=== PATIENT | female | born 1940 ===

== ENCOUNTER 2023-12-04 12:53 | Outpatient (AMB) | payer MEDICARE, BC, SELFPAY ==
--- NOTE | 2023-12-04 13:03 | MHC.OFFWIV ---
Intake Vital Signs 12/04/23 13:04 Weight 65.317 kg BP 110/60 Blood Pressure Location Lt brachial Position Sitting Pulse 98 Pulse Source Pulse Oximeter Temp 98.3 F Temp Source Temporal Artery Scan Pulse Oximetry (%) 96 Oxygen Delivery Method Room Air Intake Visit Reasons: EP not eating abdomen pain fever 101.2 Intake Note: ptis here today for not eating abdomen pain fever started thursday Patient Tobacco Use Status: Never used Tobacco Allergies No Known Allergies Allergy (Verified 12/04/23 13:04) Do you need a note to return to daycare/school/sports/work: No HPI HPI Comments History of Present Illness Details 1323 83 year old female presents w/ concerns of fevers ( Tmax 101.0F at home today), chills lower abd discomfort, fatigue, malaise, weakness, decreased appetite since Thursday not improving. Patient has not been acting her normal self. Here with daughter who is 1 of her caretakers. Patient has history of urinary tract infections have presented similarly. Patient reports lower abdominal discomfort primarily with palpation. Denies nausea, vomiting, blood per rectum, diarrhea, headache, vision changes, chest pain and shortness of breath. Physical exam suprapubic abdominal discomfort. Concerns for UTI versus cystitis versus urosepsis. Other differentials include viral illness, diverticulitis, metabolic derangements, dehydration. Plan at this time will have patient go to [facility]'s Emergency Department. Spoke to Triage nurse Sean. for expect [facility] Social History Patient Tobacco Use Status: Never used Tobacco Review of Systems Const All systems reviewed & are unremarkable except as noted in HPI and below Physical Exam Vital Signs: vss Appearance: Alert.? Oriented X3.? No acute distress.? Patient does however appear sick. Week. Head: Normocephalic, atraumatic, no step-offs or deformities Eyes: Pupils equal, round and reactive to light.? Neck: Normal inspection.? Neck supple.? CVS: Normal heart rate and rhythm.? Pulses normal.? Respiratory: No respiratory distress.? Breath sounds normal.? Abdomen: Soft and lower abdominal pain with palpation particularly in suprapubic region.? Skin: Skin warm and dry.? Normal skin color.? Normal skin turgor.? Extremities: No lower extremity edema.? No calf ttp. Global weakness Neuro: Oriented X 3.? No motor deficit.? No sensory deficit. CN 2-12 intact Assessment & Plan Assessment & Plan (1) Abdominal pain: Code(s): R10.9 - Unspecified abdominal pain (2) Weakness: Code(s): R53.1 - Weakness (3) Fever: Code(s): R50.9 - Fever, unspecified Plan Patient will go to [facility] ED Coding Level of Care Code Est Pt Level 3 (55145) Diagnoses Abdominal pain R10.9 Weakness R53.1 Fever R50.9
[2023-12-04 13:04] VITALS: BP 110/60; PULSE 98; TEMP 36.8; O2SAT 96
== END 2023-12-04 13:53 | disposition home or self-care (01) ==
PROVIDERS: PCP Internal Medicine; Visit Provider Physician Assistant
DX: R10.9 Unspecified abdominal pain (principal); R53.1 Weakness; R50.9 Fever, unspecified
CPT/HCPCS: 99213

== ENCOUNTER 2023-12-04 13:46 | Inpatient (IN) | payer MEDICARE, BC, SELFPAY ==
[2023-12-04] VITALS (10 sets, daily range): BP systolic 82–165; BP diastolic 47–64; PULSE 73–101; RESP 14–20; TEMP 36.7–37.5; O2SAT 94–97; BMI 28.3
--- NOTE | ~2023-12-04 | CT_ITS ---
EXAMINATION: CT abdomen pelvis w IV con CLINICAL INFORMATION: Reason for Exam LUQ and LLQ tenderness, fever COMPARISON: No prior CT available for comparison. TECHNIQUE: Multidetector volumetric imaging was performed from the superior aspect of the liver through the pubic symphysis 85 mL Omnipaque 350 injected Sagittal and coronal reformatted images were obtained on the technologist's workstation. This CT examination was performed using dose optimization techniques as appropriate, variously including the following: *Automated exposure control *Adjustment of mA and/or kV according to patient size (this includes techniques or standardized protocols for targeted exams where dose is matched to indication/reason for exam; i.e. extremities or head) *Use of iterative reconstruction technique DLP: 401 mGy-cm FINDINGS: LOWER THORAX: Included lung bases are clear. HEPATOBILIARY: Tiny hypodensity in the right lobe of the liver likely a cyst 8 mm image 22 series of 3, liver otherwise normal homogeneous. GALLBLADDER: Gallbladder unremarkable. SPLEEN: Spleen is normal in size. PANCREAS: No focal mass or ductal dilatation. STOMACH AND GASTROINTESTINAL TRACT: Stomach is grossly unremarkable. There is diverticulosis of the area sigmoid colon without CT evidence of acute diverticulitis. Excess amount of stool in the colon suggests constipation. Appendix not visualized probably obscured by crowding of bowel loops and paucity of intraperitoneal fat.. ADRENALS: No adrenal nodules. KIDNEYS/URETERS: There is left renal hydronephrosis, transition at the ureteral pelvic junction, no stone can be identified, uncertain etiology could be by noncalcified stone, small lesion, crossing vessel among others, there is perinephric fat stranding, hypodense area in the anterior cortex of the left kidney measure about 2.2 cm concerning for possible infection nephric abscess/nephroma. There are multiple left renal cysts the largest protruding from the upper pole measure 5.9 cm. URINARY BLADDER: Partially decompressed. PELVIC VISCERA: Evaluation of the pelvis is limited due to intense beam hardening artifact from the left hip. PERITONEUM: No free air or fluid. LYMPH NODES: No lymphadenopathy. VASCULAR:Heavy vascular calcification of the aorta without evidence of aneurysm. 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 Left hip prosthesis CT/CT abdomen pelvis w IV con IMPRESSION: 1. There is left renal hydronephrosis, transition proximally at the UPJ junction, no stone can be identified, uncertain etiology could be by noncalcified stone, small lesion, crossing vessel among others, there is perinephric fat stranding, hypodense area in the anterior cortex of the left kidney measure about 2.2 cm concerning for possible infection developing renal abscess. Consider correlation with with short-term follow-up CT urogram. 2. Diverticulosis without evidence of acute diverticulitis. 3. Excess amount of stool in the colon suggests constipation. 4. 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
--- NOTE | ~2023-12-04 | XR_ITS ---
EXAMINATION: XR CHEST CLINICAL INFORMATION: Cough x1 week COMPARISON: None available. TECHNIQUE: 2 views of the chest were obtained. FINDINGS: Lungs are well-expanded and clear. Heart size and pulmonary vascularity is normal. There is mild scoliosis of dorsal spine. XR/XR chest 2V IMPRESSION: Unremarkable chest.
--- NOTE | ~2023-12-04 | FL_ITS ---
EXAMINATION: XR FLUOROSCOPY WITH IMAGES CLINICAL INFORMATION: Cystoscopy with stent placement. COMPARISON: CT abdomen and pelvis dated 12/04/2023. TECHNIQUE: Fluoroscopy Supervised By: Dr. Julio Cesar Vines. Fluoroscopy Time: 20.1 seconds. Cumulative Dose: 5.13 mGy. Images: 2. FINDINGS: The submitted images show injection of contrast opacifying the left ureter. There is mild tapering at the ureteropelvic junction. Small gas bubbles are seen in the mid left ureter. A double pigtail left ureteric stent is placed. FL/FL guidance in OR IMPRESSION: Intraoperative fluoroscopic guidance is provided during cystoscopy and left ureteric stent placement. Please see the patient's Operative Report for full procedural details.
--- NOTE | 2023-12-04 14:09 | ED.GENADULT ---
HPI - General Adult General Chief complaint: General Medical Stated complaint: Low Blood Pressure Tachy Sent by PCP Time Seen by Provider: 12/04/23 14:09 Source: patient and family (daughter) Mode of arrival: ambulatory Limitations: no limitations History of Present Illness HPI narrative: Patient is an 83-year-old female presenting to the emergency department with daughter who reports that patient has felt unwell since Thursday. States symptoms began as generalized fatigue and decreased appetite. Family then felt patient's abdomen was firm and began giving her OTC laxatives. Daughter states that on patient had a bowel movement, appeared less fatigued, and was able to eat. She states that today patient appeared fatigued again, decreased appetite, and patient's son who is a physician was concerned for UTI or other cause of patient's symptoms. Patient reports small bowel movement this morning but is unable to report whether it was firm, soft, etc. Daughter reports some memory impairment. Daughter checked temp in ear today and had 101.3 in one ear, 101.7 in the other. Daughter took patient to urgent care this morning and was told patient was tachycardic and hypotensive, referred to the ED. Patient and daughter deny cough or dyspnea. Patient denies chest pain, palpitations, lower extremity edema, or calf pain/swelling. MD complaint: fever, fatigue Onset (ago): day(s) Location: abdomen Radiation: non-radiation Severity: mild Quality: dull Exacerbating factors: eating Associated symptoms: fever/chills and weakness Treatments prior to arrival: other Related Data Home Medications Medication Instructions Recorded Confirmed ascorbic acid (vitamin C) 500 mg 500 mg PO DAILY 12/04/23 12/04/23 tablet (Vitamin C) aspirin 81 mg chewable tablet 81 mg PO DAILY 12/04/23 12/04/23 atorvastatin 80 mg tablet 80 mg PO DAILY 12/04/23 12/04/23 calcium 600 mg capsule 600 mg PO DAILY 12/04/23 12/04/23 doxazosin 4 mg tablet 4 mg PO DAILY 12/04/23 12/04/23 ezetimibe 10 mg tablet 10 mg PO DAILY 12/04/23 12/04/23 hydrochlorothiazide 12.5 mg tablet 12.5 mg PO DAILY 12/04/23 12/04/23 irbesartan 300 mg tablet 300 mg PO DAILY 12/04/23 12/04/23 metoprolol tartrate 25 mg tablet 25 mg PO BID 12/04/23 12/04/23 multivitamin 1 tab PO DAILY 12/04/23 12/04/23 Previous Rx's Medication Instructions Recorded cefuroxime axetil 250 mg tablet 250 mg PO BID 7 days #14 tabs 12/04/23 Allergies Allergy/AdvReac Type Severity Reaction Status Date / Time No Known Allergies Allergy Verified 12/04/23 13:04 Review of Systems Review of Systems: As per HPI. Yes all other systems are reviewed and are negative [facility] Past Medical History Medical History Constipation History of recurrent UTIs Left leg DVT Rupture of left gastrocnemius muscle Leg edema, left COPD (chronic obstructive pulmonary disease) Hyperlipidemia Essential hypertension Surgical History History of left hip replacement History of operative procedure on lumbosacral spinal structure S/P IVC filter History of cataract surgery H/O: hysterectomy Social History Social History Household Members: Spouse Housing: Apartment Housing Other:: indep living Do you presently have visiting nurse or other home services: No Alcohol intake: never Patient Tobacco Use Status: Former Tobacco user Advance Directives Date on File: 12/05/23 service: No Physical Exam ED Vital Signs: Vital Signs - 24 hr 12/04/23 14:03 12/04/23 14:14 12/04/23 14:14 Temperature 98.5 F Pulse Rate 84 Respiratory Rate 18 Blood Pressure 82/47 L 142/59 H 103/49 L Pulse Oximetry 94 Oxygen Delivery Method Room Air 12/04/23 15:46 12/04/23 16:05 12/04/23 17:20 Temperature 98.3 F 98.1 F Pulse Rate 74 73 84 Respiratory Rate 14 16 16 Blood Pressure 139/62 127/62 157/64 H Pulse Oximetry 95 96 97 Oxygen Delivery Method Room Air Room Air Room Air 12/04/23 18:29 12/04/23 20:10 Temperature 98.6 F Pulse Rate 101 H 101 H Respiratory Rate 20 20 Blood Pressure 165/52 H Pulse Oximetry 96 Oxygen Delivery Method Room Air BMI result Body Mass Index 28.3 Vital signs have been reviewed and appear to be correct. Blood pressure normal. Heart rate normal. Respiratory rate normal. Temperature normal. Oxygen saturation normal. Course Reevaluation(s) Reevaluation #1: Patient was signed out to me pending UA and CT abdomen/pelvis. Patient's UA did show infection. IV ceftriaxone ordered. Patient's clinical presentation is NOT consistent with sepsis (@1916). Patient's CT abdomen/pelvis showed evidence of a possible left renal abscess in the left anterior cortex. Consulted with the urologist who recommended continued IV antibiotics and admission to the hospital. I spoke with the hospitalist team who agreed to admission. Patient's son has requested to be informed of all updates and can be called at any time for more information, if needed. Patient's son's information as follows: Odin Rodriguez MD. [phone]. Time: 21:16 Medications Administered Generic Name Dose Route Start Last Admin Trade Name Freq PRN Reason Stop Dose Admin Acetaminophen 975 mg 12/04/23 21:46 12/05/23 17:04 Acetaminophen 325 Mg Tablet PO 975 mg Q6H PRN Administration Headache Albuterol/Ipratropium 3 ml 12/05/23 17:00 12/06/23 19:26 Albuterol/Iprat 2.5/0.5mg 3 Ml Ampul.Neb INHALE 3 ml RQ4H WHILE AWAKE RAUL Administration Ascorbic Acid 500 mg 12/05/23 09:00 12/06/23 08:30 Ascorbic Acid 500 Mg Tablet PO 500 mg DAILY RAUL Administration Aspirin 81 mg 12/05/23 09:00 12/06/23 08:30 Aspirin 81 Mg Tab.Chew PO 81 mg DAILY RAUL Administration Atorvastatin Calcium 80 mg 12/05/23 09:00 12/06/23 08:30 Atorvastatin Calcium 80 Mg Tablet PO 80 mg DAILY RAUL Administration Bisacodyl 10 mg 12/05/23 09:00 12/06/23 09:57 Bisacodyl 5 Mg Tablet. PO Not Given DAILY RAUL Calcium Carbonate 500 mg 12/05/23 09:00 12/06/23 08:30 Calcium Carbonate 500 Mg Tablet PO 500 mg DAILY RAUL Administration Doxazosin Mesylate 4 mg 12/05/23 09:00 12/06/23 08:30 Doxazosin Mesylate 2 Mg Tablet PO 4 mg DAILY RAUL Administration Protocol Ezetimibe 10 mg 12/05/23 09:00 12/06/23 08:30 Ezetimibe 10 Mg Tablet PO 10 mg DAILY RAUL Administration Hydrochlorothiazide 12.5 mg 12/05/23 09:40 12/06/23 08:30 Hydrochlorothiazide 12.5 Mg Tablet PO 12.5 mg DAILY RAUL Administration Protocol Ceftriaxone Sodium 1 gm/ 50 mls @ 100 mls/hr 12/05/23 17:00 12/06/23 17:53 Sodium Chloride IV Infused Q24H RAUL Infusion Metoprolol Tartrate 25 mg 12/04/23 21:55 12/06/23 20:18 Metoprolol Tartrate 25 Mg Tablet PO 25 mg BID RAUL Administration Protocol Multivitamins/Vitamin C 1 tab 12/05/23 09:00 12/06/23 08:30 Multivitamin Tablet PO 1 tab DAILY RAUL Administration Sodium Chloride 3 ml 12/05/23 00:00 12/06/23 23:38 0.9 % Sodium Chloride Flush 3 Ml Syringe IVFLUSH 3 ml QSHIFT RAUL Administration Discontinued Medications Generic Name Dose Route Start Last Admin Trade Name Freq PRN Reason Stop Dose Admin Albuterol/Ipratropium 3 ml 12/04/23 22:04 12/05/23 16:10 Albuterol/Iprat 2.5/0.5mg 3 Ml Ampul.Neb INHALE 3 ml RQ4H WHILE AWAKE PRN Administration Shortness of Breath/Wheezing Albuterol Sulfate 2.5 mg/ 0 mg 12/04/23 18:22 12/04/23 18:29 Albuterol/Ipratropium 3 ml INHALE 12/04/23 18:23 1 dose ONCE ONE Administration Sodium Chloride 1,000 mls @ 999 mls/hr 12/04/23 15:00 12/04/23 18:02 Ns IV 12/04/23 16:00 Infused .Q1H1M RAUL Infusion Ceftriaxone Sodium 1 gm/ 50 mls @ 100 mls/hr 12/04/23 17:11 12/04/23 18:02 Sodium Chloride IV 12/04/23 17:40 Infused ONCE ONE Infusion Sodium Chloride 1,000 mls @ 999 mls/hr 12/04/23 17:30 12/04/23 18:16 Ns IV 12/04/23 18:30 Not Given .Q1H1M RAUL Sodium Chloride 1,000 mls @ 80 mls/hr 12/04/23 22:15 12/06/23 17:55 Ns IVCONT Infused .[id number] RAUL Infusion Iohexol 85 ml 12/04/23 18:02 12/04/23 18:02 Iohexol 350 Mg/Ml 100 Ml Infus..Btl IV 12/04/23 18:03 85 ml ONCE ONE Administration Ketorolac Tromethamine 15 mg 12/04/23 17:50 12/04/23 18:15 Ketorolac Tromethamine 15 Mg/Ml Vial IVPUSH 12/04/23 17:51 15 mg ONCE ONE Administration Valsartan 160 mg 12/05/23 09:00 12/05/23 07:31 Valsartan 160 Mg Tablet PO 160 mg DAILY RAUL Administration Medical Decision Making Medical Decision Making [facility] Narrative: Patient is an 83-year-old female presenting to the emergency department with daughter who reports that patient has felt unwell since Thursday. States symptoms began as generalized fatigue and decreased appetite. On exam patient is awake, A+Ox3, VS WNL, afebrile, normal neurological exam without focal deficits, physical exam findings as above. Given reported symptoms and physical exam findings, initial differential includes viral illness, Covid, flu, UTI/pyelonephritis, constipation, diverticulitis. Less likely ACS but will obtain EKG and troponin. Will give IV fluids as daughter reports decreased PO intake over the past week. Labs notable for as, mild anemia consistent with baseline, elevated troponin, will repeat, elevated BUN will order IV fluids, mildly elevated liver enzymes, normal bili. Patient signed out to MALLORY Arredondo pending UA and CT results., Differential Diagnosis Differential Diagnoses: The differential diagnosis associated with the presentation includes As per MDM. Admission/Observation Consideration of admission/observation: Escalation of care including admission/observation considered Lab Data [facility] Lab Attestation statement: I reviewed the patient's lab results. As per MDM. 12/07/23 05:26 12/07/23 05:26 Labs: Lab Results 12/04/23 12/04/23 12/04/23 Range/Units 14:27 14:32 16:20 WBC 9.7 (4.8-10.8) X10*3/uL RBC 3.47 L (4.20-5.50) X10*6/uL Hgb 11.0 L (12.0-16.0) g/dl Hct 33.4 L (37.0-47.0) % MCV 96.3 (80.0-98.0) fL MCH 31.7 (27.0-33.0) pg MCHC 32.9 (31.0-35.0) g/dl RDW 14.6 (11.0-16.0) % Plt Count 225 (160-400) X10*3/uL MPV 10.2 (9.4-12.3) fL Immature Gran % (Auto) 0.4 (0.0-0.4) % Neut % (Auto) 86.1 H (45-73) % Lymph % (Auto) 5.7 L (20-40) % [place] % (Auto) 7.6 (2-11) % Eos % (Auto) 0.1 (0-4) % Baso % (Auto) 0.1 (0-2) % Lymph # (Auto) 0.6 L (1.2-4.9) X10*3/uL [place] # (Auto) 0.7 (0.1-1.2) X10*3/uL Eos # (Auto) 0.0 (0.0-0.4) X10*3/uL Baso # (Auto) 0.0 (0.0-0.2) X10*3/uL Abs Immat Gran (auto) 0.04 H (0.00-0.03) X10*3/uL Absolute Neuts (auto) 8.3 (2.0-8.3) x10*3/uL Absolute Nucleated RBC 0.000 (0.0-0.012) X10*3/uL Nucleated RBC % (auto) 0.0 (0.0-0.2) /100WBC PT 11.8 (11.1-13.3) SEC INR 1.0 (0.9-1.1) Sodium Cancelled Potassium Cancelled Chloride Cancelled Carbon Dioxide Cancelled Anion Gap Cancelled BUN Cancelled Creatinine Cancelled Estim Creat Clear Calc Cancelled Estimated GFR Cancelled Random Glucose Cancelled Calcium Cancelled Total Bilirubin Cancelled AST Cancelled ALT Cancelled Alkaline Phosphatase Cancelled Troponin I High Sens 47.8 H (<3.5-17.0) ng/L B-Natriuretic Peptide (<100) pg/mL Total Protein Cancelled Albumin Cancelled Urine Color Yellow Urine Appearance Turbid Urine pH 6.0 (5.0-9.0) Ur Specific Varina 1.015 (1.005-1.025) Urine Protein 100 (2+) H (Neg-Trace) mg/dL Urine Glucose (UA) Negative (Negative) mg/dL Urine Ketones Negative (Negative) mg/dL Urine Blood Moderate (2+) H (Negative) Urine Nitrite Negative (Negative) Ur Leukocyte Esterase Large (3+) H (Negative) Urine RBC >20 H (0-2) /HPF Urine WBC >50 H (0-5) /HPF Ur Squamous Epith Cells 3-5 (0-2) /HPF Urine Bacteria 4+ (None Seen) Hyaline Casts 6-10 (0-2) /LPF COVID-19 (DAISY) Negative (Negative) COVID-19 Clin Com See Note Influenza Type A (KISHORE) Negative (Negative) Influenza Type B (KISHORE) Negative (Negative) Influenza A & B Note See Note 12/04/23 12/04/23 12/04/23 Range/Units 16:59 17:33 18:28 WBC (4.8-10.8) X10*3/uL RBC (4.20-5.50) X10*6/uL Hgb (12.0-16.0) g/dl Hct (37.0-47.0) % MCV (80.0-98.0) fL MCH (27.0-33.0) pg MCHC (31.0-35.0) g/dl RDW (11.0-16.0) % Plt Count (160-400) X10*3/uL MPV (9.4-12.3) fL Immature Gran % (Auto) (0.0-0.4) % Neut % (Auto) (45-73) % Lymph % (Auto) (20-40) % [place]ot % (Auto) (2-11) % Eos % (Auto) (0-4) % Baso % (Auto) (0-2) % Lymph # (Auto) (1.2-4.9) X10*3/uL [place] # (Auto) (0.1-1.2) X10*3/uL Eos # (Auto) (0.0-0.4) X10*3/uL Baso # (Auto) (0.0-0.2) X10*3/uL Abs Immat Gran (auto) (0.00-0.03) X10*3/uL Absolute Neuts (auto) (2.0-8.3) x10*3/uL Absolute Nucleated RBC (0.0-0.012) X10*3/uL Nucleated RBC % (auto) (0.0-0.2) /100WBC PT (11.1-13.3) SEC INR (0.9-1.1) Sodium 138 Potassium 3.4 Chloride 99 Carbon Dioxide 26 Anion Gap 16 BUN 51 H Creatinine 1.38 Estim Creat Clear Calc 24.1 Estimated GFR 36 Random Glucose 106 Calcium 8.5 Total Bilirubin 0.8 AST 49 H ALT 31 Alkaline Phosphatase 92 Troponin I High Sens 30.9 H (<3.5-17.0) ng/L B-Natriuretic Peptide 80 (<100) pg/mL Total Protein 6.3 L Albumin 3.1 L Urine Color Urine Appearance Urine pH (5.0-9.0) Ur Specific Varina (1.005-1.025) Urine Protein (Neg-Trace) mg/dL Urine Glucose (UA) (Negative) mg/dL Urine Ketones (Negative) mg/dL Urine Blood (Negative) Urine Nitrite (Negative) Ur Leukocyte Esterase (Negative) Urine RBC (0-2) /HPF Urine WBC (0-5) /HPF Ur Squamous Epith Cells (0-2) /HPF Urine Bacteria (None Seen) Hyaline Casts (0-2) /LPF COVID-19 (DAISY) (Negative) COVID-19 Clin Com Influenza Type A (KISHORE) (Negative) Influenza Type B (KISHORE) (Negative) Influenza A & B Note Independent Interpretation I performed an independent interpretation of an: EKG (normal sinus rhythm with LBBB, rate 76 BPM, normal NM interval ) Independent Historian Clinical information obtained from an independent historian. History obtained from or confirmed by: Other (daughter) External Record Review External record reviewed: Inpatient record, Office record and Outpatient record Discharge Plan Discharge Clinical Impression: Kidney abscess Urinary tract infection Qualifiers: Urinary tract infection type: acute cystitis Hematuria presence: without hematuria Qualified Code(s): N30.00 - Acute cystitis without hematuria Patient Disposition: Admitted As Inpatient Interventions: Admission Worksheet (ED) Last Done: 12/05/23 10:52 Discharge Date/Time: 12/05/23 11:15
--- NOTE | 2023-12-04 14:17 | ECG_ITS ---
Test Reason : HYPOTENSIVE Blood Pressure : / mmHG Vent. Rate : 076 BPM Atrial Rate : 076 BPM P-R Int : 124 ms QRS Dur : 150 ms QT Int : 426 ms P-R-T Axes : 043 009 155 degrees QTc Int : 479 ms Normal sinus rhythm Left bundle branch block Abnormal ECG No previous ECGs available Referred By: Zandra Garcia Electronically Signed By:Gerry Johnson
[2023-12-04 14:38] LABS: MANUAL DIFF FLAG NO
[2023-12-04 14:51] LABS: Basophils Percent Auto 0.1 % (0-2); Eosinophils Percent Auto 0.1 % (0-4); Hematocrit 33.4 % (37.0-47.0); Imm Gran Abs Auto 0.04 X10*3/uL (0.00-0.03); Imm Gran Pct Auto 0.4 % (0.0-0.4); Lymphocytes Absolute Auto 0.6 X10*3/uL (1.2-4.9); Lymphocytes Percent Auto 5.7 % (20-40); Mean Corpuscular HGB Conc 32.9 g/dl (31.0-35.0); Mean Corpuscular Hemoglobin 31.7 pg (27.0-33.0); Mean Corpuscular Volume 96.3 fL (80.0-98.0); Mean Platelet Volume 10.2 fL (9.4-12.3); Monocytes Absolute Auto 0.7 X10*3/uL (0.1-1.2); Monocytes Percent Auto 7.6 % (2-11); Neutrophils Absolute Auto 8.3 x10*3/uL (2.0-8.3); Neutrophils Percent Auto 86.1 % (45-73); Platelet Count 225 X10*3/uL (160-400); Red Blood Count 3.47 X10*6/uL (4.20-5.50); Red Cell Distribution Width 14.6 % (11.0-16.0); White Blood Count 9.7 X10*3/uL (4.8-10.8)
[2023-12-04 14:52] LABS: Prothrombin Time 11.8 SEC (11.1-13.3)
[2023-12-04 15:00] LABS: Troponin-I High Sensitivity 47.8 ng/L (<3.5-17.0)
[2023-12-04 15:11] LABS: COVID-19 Test Negative (Negative); IDNOW Serial# 58CA691E; IDNOW Serial# 6674DD1D; Influenza A Negative (Negative); Influenza B2 Negative (Negative)
--- NOTE | 2023-12-04 16:15 | PHA.MEDREC ---
Pharmacy Consult ? Medication Reconciliation Pharmacy has completed the medication reconciliation. confirmed medication with daughter and list on phone. Neha Gonsalez CPhT
[2023-12-04] MEDS: 0.9 % Sodium Chloride 1,000 ML 999 ML IV (16:20)
--- NOTE | 2023-12-04 16:27 | PC.NURSE ---
went to bathroom in wheelchair, gave urine, will send for urinalysis
[2023-12-04 16:39] LABS: Appearance Urine Turbid; Color Urine Yellow; Glucose Urine UA Negative (Negative); Leukocyte Esterase Urine Large (3+) (Negative); Nitrite Urine Negative (Negative); Specific Gravity - Urine 1.015 (1.005-1.025); UMIC TRIGGER UACC YES; Urine Blood Moderate (2+) (Negative); Urine Ketones Negative (Negative); Urine Protein 100 (2+) mg/dL (Neg-Trace)
[2023-12-04 17:04] LABS: Bacteria Urine 4+ (None Seen); RBC Urine >20 /HPF (0-2); UACC Culture Trigger YES; WBC Urine >50 /HPF (0-5)
[2023-12-04 17:17] LABS: Alanine Aminotransferase 31 U/L (0-31); Albumin Level 3.1 g/dL (3.5-5.0); Alkaline Phosphatase 92 U/L (39-117); Anion Gap 16 (12-20); Aspartate Amino Transferase 49 U/L (5-31); Bilirubin Total 0.8 mg/dL (0.0-1.0); Blood Urea Nitrogen 51 mg/dL (9-16); Calcium 8.5 mg/dL (8.4-10.2); Carbon Dioxide 26 mmol/L (22-29); Chloride 99 mmol/L (96-108); Creatinine Clr Calc Pharmacy 24.1; Estimated Glomerular Filt Rate 36; Glucose Random 106 mg/dL (60-115); Potassium 3.4 mmol/L (3.3-5.1); Sodium 138 mmol/L (135-145); Total Protein 6.3 g/dL (6.5-8.0)
[2023-12-04] MEDS: cefTRIAXone sodium 1 GM in 0.9 % Sodium Chloride 50 ML IV (17:18)
--- NOTE | 2023-12-04 17:22 | MHC.EDTECH ---
This Pct just assumed care of Pt ,Pt was assisted to bathroom with a wheeled chair ,pt void back in bed ,vitals taken ,Pt daughter at bedside .
--- NOTE | 2023-12-04 17:36 | MHC.EDTECH ---
Patient repeated trop drawn and sent to lab .
[2023-12-04 18:02] LABS: Troponin-I High Sensitivity 30.9 ng/L (<3.5-17.0)
[2023-12-04] MEDS: iohexoL 350 MG/ML 100 ML INFUS..BTL 85 ML IV (18:02)
[2023-12-04] MEDS: Ketorolac Tromethamine 15 MG/ML VIAL IVPUSH (18:15)
--- NOTE | 2023-12-04 18:16 | PC.NURSE ---
pt up to bathroom, ambulated with cane, increased SOB aand wheezing upon return to rm 5. Sao2 down to 88% RA. Norma TEJADA made aware
[2023-12-04] MEDS: Albuterol Sulfate 2.5 MG, Albuterol/Iprat 2.5/0.5MG 3 ML 3 ML INHALE (18:29)
--- NOTE | 2023-12-04 18:36 | MHC.EDTECH ---
Patient BNP drawn and sent to lab ,Patient was hooked up to nuclear monitoring technician ,Patient ate 2 ice cream and was given turkey sandwich and any warner for snack ,Patient Son is here with her ,Patient is currently having breathing breathing Treatment .
[2023-12-04 18:52] LABS: B Type Natriuretic Peptide 80 pg/mL (<100)
--- NOTE | 2023-12-04 22:05 | P.HPHOSP_ITS ---
History of Present Illness Date of Service: 12/04/23 Attending physician on admission: Yanet Lugo Chief Complaint: Generalized weakness Margo Tee is a very pleasant 83 years old woman with past medical history significant for hypertension, hyperlipidemia and mild COPD -not home oxygen or daily steroids use presents to the emergency department complaining of generalized weakness and decreased appetite since Thursday. Patient also has history of several UTIs in the last year and a half requiring p.o. antibiotic courses. She was complaining of a generalized abdominal discomfort. She did not report nausea, vomiting or chills. Her temperature was elevated at home. She does have chronic cough and headache. She did not report chest pain. HPI and medical history was provided mostly by patient's son who is a physician. Son was concerned for urinary tract infection. In the ED, she was initially found with slight tachycardia. There is no fever or hypotension. Her oxygen saturation is normal on room air. Blood workup showed no leukocytosis. Creatinine is 1.38 and BUN 51. Troponin x2 is elevated but decreasing. Urinalysis consistent with urinary tract infection. Viral testing for COVID-19 and influenza is negative. CXR is negative. Abdominal pelvis CT scan with IV contrast showed left renal hydronephrosis of uncertain etiology. There is a concern for possible infection/developing renal abscess. It also showed diverticulosis without diverticulitis and 6 mL of stool in the colon suggesting constipation. ED tx: Ceftriaxone 1 g IV, NS 2 L bolus, ketorolac 15 mg IV Review of Systems 2 Review of Systems: All 12 systems were reviewed and normal except as noted in HPI. [facility] Medical History (Updated 12/04/23 @ 22:45 by Yanet Lugo MD) Constipation History of recurrent UTIs Left leg DVT Rupture of left gastrocnemius muscle Leg edema, left COPD (chronic obstructive pulmonary disease) Hyperlipidemia Essential hypertension Surgical History (Updated 12/04/23 @ 22:20 by Yanet Lugo MD) History of left hip replacement History of operative procedure on lumbosacral spinal structure S/P IVC filter History of cataract surgery H/O: hysterectomy Social History Alcohol intake: never Patient Tobacco Use Status: Former Tobacco user Meds Allergies Allergy/AdvReac Type Severity Reaction Status Date / Time No Known Allergies Allergy Verified 12/04/23 13:04 Active Medications: Current Medications Acetaminophen (Acetaminophen 325 Mg Tablet) 975 mg PO Q6H PRN PRN Reason: Headache Albuterol/Ipratropium (Albuterol/Iprat 2.5/0.5mg 3 Ml Ampul.Neb) 3 ml INHALE RQ4H WHILE AWAKE PRN PRN Reason: Shortness of Breath/Wheezing Ascorbic Acid (Ascorbic Acid 500 Mg Tablet) 500 mg PO DAILY [facility] Aspirin (Aspirin 81 Mg Tab.Chew) 81 mg PO DAILY [facility] Atorvastatin Calcium (Atorvastatin Calcium 80 Mg Tablet) 80 mg PO DAILY [facility] Calcium Carbonate (Calcium Carbonate 500 Mg Tablet) 500 mg PO DAILY [facility] Doxazosin Mesylate (Doxazosin Mesylate 2 Mg Tablet) 4 mg PO DAILY [facility]; Protocol Ezetimibe (Ezetimibe 10 Mg Tablet) 10 mg PO DAILY [facility] Sodium Chloride (Ns) 1,000 mls @ 80 mls/hr IVCONT .[id number] [facility] Ceftriaxone Sodium 1 gm/ (Sodium Chloride) 50 mls @ 100 mls/hr IV Q24H [facility] Metoprolol Tartrate (Metoprolol Tartrate 25 Mg Tablet) 25 mg PO BID [facility]; Protocol Multivitamins/Vitamin C (Multivitamin Tablet) 1 tab PO DAILY [facility] Sodium Chloride (0.9 % Sodium Chloride Flush 3 Ml Syringe) 3 ml IVFLUSH QSHIFT [facility] Valsartan (Valsartan 160 Mg Tablet) 160 mg PO DAILY [facility] Home Medications Medication Instructions Recorded Confirmed Last Taken Type ascorbic acid (vitamin C) 500 mg 500 mg PO DAILY 12/04/23 12/04/23 12/04/23 History tablet (Vitamin C) aspirin 81 mg chewable tablet 81 mg PO DAILY 12/04/23 12/04/23 12/04/22 History atorvastatin 80 mg tablet 80 mg PO DAILY 12/04/23 12/04/23 12/04/23 History calcium 600 mg capsule 600 mg PO DAILY 12/04/23 12/04/23 12/03/23 History doxazosin 4 mg tablet 4 mg PO DAILY 12/04/23 12/04/23 12/04/23 History ezetimibe 10 mg tablet 10 mg PO DAILY 12/04/23 12/04/23 12/04/23 History hydrochlorothiazide 12.5 mg tablet 12.5 mg PO DAILY 12/04/23 12/04/23 12/02/23 History irbesartan 300 mg tablet 300 mg PO DAILY 12/04/23 12/04/23 12/04/23 History metoprolol tartrate 25 mg tablet 25 mg PO BID 12/04/23 12/04/23 12/02/23 History multivitamin 1 tab PO DAILY 12/04/23 12/04/23 12/03/23 History Physical Exam 2 Vital Signs and Narrative: Vital Signs: Last Vital Signs Temp 98.6 F 12/04/23 20:10 Pulse 101 H 12/04/23 20:10 Resp 20 12/04/23 20:10 BP 165/52 H 12/04/23 20:10 Pulse Ox 96 12/04/23 20:10 O2 Del Method Room Air 12/04/23 20:10 BMI result Body Mass Index 28.3 Constitutional - Awake and Alert, No apparent distress. Cooperative. Please send. HEENT - Normacephalic. Heart - RRR. No murmurs. Respiratory - Normal lung expansion, Normal respiratory effort, No respiratory distress, tachypnea. Mild expiratory wheezing. Gastrointestinal - NT / ND; +BS; No rebound or guarding Extremities - Left leg edema (chronic, at baseline as per son). Musculoskeletal - Normal inspection, normal ROM Skin - Warm/Dry Neurological - Alert. Normal speech. No facila droop. Psychological - Appropriate affect Results Labs 12/04/23 14:32 12/04/23 16:59 Labs: Laboratory Results - last 24 hr 12/04/23 12/04/23 12/04/23 14:27 14:32 16:20 MCV 96.3 MCH 31.7 MCHC 32.9 RDW 14.6 Plt Count 225 MPV 10.2 Immature Gran % (Auto) 0.4 Neut % (Auto) 86.1 H Lymph % (Auto) 5.7 L Johnson % (Auto) 7.6 Eos % (Auto) 0.1 Baso % (Auto) 0.1 Lymph # (Auto) 0.6 L Johnson # (Auto) 0.7 Eos # (Auto) 0.0 Baso # (Auto) 0.0 Abs Immat Gran (auto) 0.04 H Absolute Neuts (auto) 8.3 Absolute Nucleated RBC 0.000 Nucleated RBC % (auto) 0.0 PT 11.8 INR 1.0 Anion Gap Cancelled Estim Creat Clear Calc Cancelled Estimated GFR Cancelled Random Glucose Cancelled Calcium Cancelled Total Bilirubin Cancelled AST Cancelled ALT Cancelled Alkaline Phosphatase Cancelled B-Natriuretic Peptide Total Protein Cancelled Albumin Cancelled Urine Color Yellow Urine Appearance Turbid Urine pH 6.0 Ur Specific [place] 1.015 Urine Protein 100 (2+) H Urine Glucose (UA) Negative Urine Ketones Negative Urine Blood Moderate (2+) H Urine Nitrite Negative Ur Leukocyte Esterase Large (3+) H Urine RBC >20 H Urine WBC >50 H Ur Squamous Epith Cells 3-5 Urine Bacteria 4+ Hyaline Casts 6-10 COVID-19 (DAISY) Negative COVID-19 Clin Com See Note Influenza Type A (KISHORE) Negative Influenza Type B (KISHORE) Negative Influenza A & B Note See Note 12/04/23 12/04/23 16:59 18:28 MCV MCH MCHC RDW Plt Count MPV Immature Gran % (Auto) Neut % (Auto) Lymph % (Auto) Johnson % (Auto) Eos % (Auto) Baso % (Auto) Lymph # (Auto) Johnson # (Auto) Eos # (Auto) Baso # (Auto) Abs Immat Gran (auto) Absolute Neuts (auto) Absolute Nucleated RBC Nucleated RBC % (auto) PT INR Anion Gap 16 Estim Creat Clear Calc 24.1 Estimated GFR 36 Random Glucose 106 Calcium 8.5 Total Bilirubin 0.8 AST 49 H ALT 31 Alkaline Phosphatase 92 B-Natriuretic Peptide 80 Total Protein 6.3 L Albumin 3.1 L Urine Color Urine Appearance Urine pH Ur Specific [place] Urine Protein Urine Glucose (UA) Urine Ketones Urine Blood Urine Nitrite Ur Leukocyte Esterase Urine RBC Urine WBC Ur Squamous Epith Cells Urine Bacteria Hyaline Casts COVID-19 (DAISY) COVID-19 Clin Com Influenza Type A (KISHORE) Influenza Type B (KISHORE) Influenza A & B Note Imaging Radiologist's Impressions: Impressions Chest X-Ray 12/04/23 14:50 IMPRESSION: Unremarkable chest. Abdomen/Pelvis CT 12/04/23 18:05 IMPRESSION: 1. There is left renal hydronephrosis, transition proximally at the UPJ junction, no stone can be identified, uncertain etiology could be by noncalcified stone, small lesion, crossing vessel among others, there is perinephric fat stranding, hypodense area in the anterior cortex of the left kidney measure about 2.2 cm concerning for possible infection developing renal abscess. Consider correlation with with short-term follow-up CT urogram. 2. Diverticulosis without evidence of acute diverticulitis. 3. Excess amount of stool in the colon suggests constipation. 4. 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 Assessment and Plan (1) Urinary tract infection: Qualifiers: Urinary tract infection type: acute cystitis Hematuria presence: w ithout hematuria Qualified Code(s): N30.00 - Acute cystitis without hematuria Status: Acute (2) Kidney abscess: Status: Acute (3) Constipation: Qualifiers: Constipation type: unspecified constipation type Qualified Code(s): K 59.00 - Constipation, unspecified Status: Acute (4) Wheezing: Status: Acute (5) COPD (chronic obstructive pulmonary disease): Qualifiers: COPD type: unspecified COPD Qualified Code(s): J44.9 - Chronic obstructive pulmonary disease, unspecified Status: Acute (6) Hyperlipidemia: Qualifiers: Hyperlipidemia type: unspecified Qualified Code(s): E78.5 - Hyperlipidemia, unspecified Status: Acute (7) Essential hypertension: Status: Acute Plan Margo Rodriguez is 83 years old woman admitted with: * Urinary tract infection. Concern for possible left-sided hydronephrosis and abscess. Admit to hospitalist service. Continue IV fluids. Continue empiric IV antibiotic therapy with ceftriaxone. Urine culture obtained. * Wheezing, possible slight exacerbation of COPD. Supplemental oxygen and DuoNeb as needed. * Constipation. MOM as needed. Dulcolax 10 mg p.o. daily. * Essential hypertension. Continue valsartan, metoprolol and Cardura. Hydrochlorothiazide on hold to void dehydration for now. * Hyperlipidemia. Continue statin and ezetimibe. * Anemia. Anemia workup. Continue to monitor hemoglobin. DVT prophylaxis: SCDs. Code status: Full. Patient will need hospitalization for at least 2 midnights for UTI/possible left renal hydronephrosis and abscess evaluation and treatment with IV fluids, empiric IV antibiotic therapy a neurology consult for further recommendations. Quality Stroke Does the patient have a stroke diagnosis?: No VTE Prior VTE?: No VTE Risk Level:: Medical - moderate - high VTE Device Contraindication: Treatment Not Indicated VTE Drug Contraindication: N/A - Med Ordered
--- NOTE | 2023-12-04 22:28 | MHC.EDTECH ---
s Patient was assisted unto bed side commode ,voided ,vitals taken ,fresh water given and tissue ,small trash bag attached to bed rail ,Patient belonging list done ,Call alvarez within Pt reach .
[2023-12-04] MEDS: Acetaminophen 325 MG TABLET 975 MG PO (22:58)
[2023-12-04] MEDS: Metoprolol Tartrate 25 MG TABLET PO (22:58)
[2023-12-04] MEDS: 0.9 % Sodium Chloride 1,000 ML 80 ML IVCONT (22:59)
--- NOTE | 2023-12-04 23:55 | MHC.EDTECH ---
Patient up rang her alvarez ,Pt was assisted unto bedside commode void ,care given Pt ,back in bed warm blanket ,Vitals taken ,Call alvarez within Pt reach
[2023-12-05] VITALS (9 sets, daily range): BP systolic 127–174; BP diastolic 50–71; PULSE 66–85; RESP 16–24; TEMP 36.7–37.7; O2SAT 93–98
[2023-12-05 00:51] LABS: Folate 17.9 ng/mL (> or = 4.0)
[2023-12-05 06:25] LABS: MANUAL DIFF FLAG NO
[2023-12-05 06:36] LABS: Basophils Percent Auto 0.1 % (0-2); Eosinophils Percent Auto 0.3 % (0-4); Hematocrit 30.3 % (37.0-47.0); Hemoglobin 9.9 g/dl (12.0-16.0); Imm Gran Abs Auto 0.05 X10*3/uL (0.00-0.03); Imm Gran Pct Auto 0.7 % (0.0-0.4); Immature Retic Fraction 13.3 % (3.0-15.9); Lymphocytes Absolute Auto 0.6 X10*3/uL (1.2-4.9); Lymphocytes Percent Auto 7.4 % (20-40); Mean Corpuscular HGB Conc 32.7 g/dl (31.0-35.0); Mean Corpuscular Hemoglobin 31.5 pg (27.0-33.0); Mean Corpuscular Volume 96.5 fL (80.0-98.0); Mean Platelet Volume 10.1 fL (9.4-12.3); Monocytes Absolute Auto 0.6 X10*3/uL (0.1-1.2); Monocytes Percent Auto 7.7 % (2-11); Neutrophils Absolute Auto 6.3 x10*3/uL (2.0-8.3); Neutrophils Percent Auto 83.8 % (45-73); Platelet Count 213 X10*3/uL (160-400); Red Blood Count 3.14 X10*6/uL (4.20-5.50); Retic HGB Equivalent 27.3 pg (30.0-35.0); Reticulocyte Percent 1.3 % (0.5-1.8); White Blood Count 7.5 X10*3/uL (4.8-10.8)
[2023-12-05 06:43] LABS: Anion Gap 14 (12-20); Blood Urea Nitrogen 43 mg/dL (9-16); Calcium 8.2 mg/dL (8.4-10.2); Carbon Dioxide 26 mmol/L (22-29); Chloride 103 mmol/L (96-108); Creatinine Clr Calc Pharmacy 24.8; Estimated Glomerular Filt Rate 38; Glucose Random 104 mg/dL (60-115); Potassium 3.4 mmol/L (3.3-5.1); Sodium 140 mmol/L (135-145)
[2023-12-05 07:05] LABS: Ferritin 709 ng/mL (10-250)
[2023-12-05 07:17] LABS: Vitamin B12 1595 pg/mL (200-900)
[2023-12-05] MEDS: Metoprolol Tartrate 25 MG TABLET PO ×2 (07:30→20:15)
[2023-12-05] MEDS: Valsartan 160 MG TABLET PO (07:31)
[2023-12-05] MEDS: Aspirin 81 MG TAB.CHEW PO (07:32)
[2023-12-05] MEDS: Atorvastatin Calcium 80 MG TABLET PO (07:32)
[2023-12-05] MEDS: Multivitamin TABLET 1 TAB PO (07:32)
[2023-12-05] MEDS: Ascorbic Acid 500 MG TABLET PO (07:32)
[2023-12-05] MEDS: Ezetimibe 10 MG TABLET PO (07:32)
[2023-12-05] MEDS: Doxazosin Mesylate 2 MG TABLET 4 MG PO (07:33)
[2023-12-05] MEDS: bisacodyL 5 MG TABLET.DR 10 MG PO (07:33)
[2023-12-05] MEDS: Albuterol/Iprat 2.5/0.5MG 3 ML AMPUL.NEB INHALE ×3 (08:04→19:58)
--- NOTE | 2023-12-05 09:32 | HO.PM.IMPN ---
Subjective Subjective Date of Service: 12/05/23 Interval History: Patient reports no new complaints. No significant nursing events overnight. Constitutional Constitutional: Reports no additional constitutional complaints Cardiovascular Cardiovascular: Reports no additional cardiovascular complaints Respiratory Respiratory: Reports no additional respiratory complaints Physical Exam Vital Signs: Vital Signs: Last Vital Signs Temp 98.2 F 12/05/23 07:36 Pulse 66 12/05/23 08:05 Resp 16 12/05/23 08:05 BP 174/60 H 12/05/23 07:36 Pulse Ox 96 12/05/23 07:36 O2 Del Method Room Air 12/05/23 07:36 BMI result Body Mass Index 28.3 Elderly female lying in bed in no distress Neck supple, no JVD Regular rate and rhythm, S1-S2 heard Regular breath sounds bilaterally, no wheezing or crackles appreciated Abdomen soft nontender, no guarding, no rigidity Patient is awake, alert and oriented to self, place, time and person ; no focal motor deficit Psych: Normal mood Left lower extremity chronic edema Objective Data Active Medications Acetaminophen (Acetaminophen 325 Mg Tablet) 975 mg PO Q6H PRN PRN Reason: Headache Last Admin: 12/04/23 22:58 Dose: 975 mg Documented By: CAROLINA Albuterol/Ipratropium (Albuterol/Iprat 2.5/0.5mg 3 Ml Ampul.Neb) 3 ml INHALE RQ4H WHILE AWAKE PRN PRN Reason: Shortness of Breath/Wheezing Last Admin: 12/05/23 08:04 Dose: 3 ml Documented By: JOHN Ascorbic Acid (Ascorbic Acid 500 Mg Tablet) 500 mg PO DAILY [facility] Last Admin: 12/05/23 07:32 Dose: 500 mg Documented By: ANTHONY Aspirin (Aspirin 81 Mg Tab.Chew) 81 mg PO DAILY [facility] Last Admin: 12/05/23 07:32 Dose: 81 mg Documented By: ANTHONY Atorvastatin Calcium (Atorvastatin Calcium 80 Mg Tablet) 80 mg PO DAILY [facility] Last Admin: 12/05/23 07:32 Dose: 80 mg Documented By: ANTHONY Bisacodyl (Bisacodyl 5 Mg Tablet.Dr) 10 mg PO DAILY [facility] Last Admin: 12/05/23 07:33 Dose: 10 mg Documented By: ANTHONY Calcium Carbonate (Calcium Carbonate 500 Mg Tablet) 500 mg PO DAILY [facility] Last Admin: 12/05/23 07:31 Dose: 500 mg Documented By: ANTHONY Doxazosin Mesylate (Doxazosin Mesylate 2 Mg Tablet) 4 mg PO DAILY [facility]; Protocol Last Admin: 12/05/23 07:33 Dose: 4 mg Documented By: ANTHONY Ezetimibe (Ezetimibe 10 Mg Tablet) 10 mg PO DAILY [facility] Last Admin: 12/05/23 07:32 Dose: 10 mg Documented By: ANTHONY Sodium Chloride (Ns) 1,000 mls @ 80 mls/hr IVCONT .[id number] [facility] Last Admin: 12/04/23 22:59 Dose: 80 mls/hr Documented By: CAROLINA Ceftriaxone Sodium 1 gm/ (Sodium Chloride) 50 mls @ 100 mls/hr IV Q24H [facility] Magnesium Hydroxide (Milk Of Magnesia 30 Ml Oral.Susp) 30 ml PO BEDTIME PRN PRN Reason: Constipation Metoprolol Tartrate (Metoprolol Tartrate 25 Mg Tablet) 25 mg PO BID [facility]; Protocol Last Admin: 12/05/23 07:30 Dose: 25 mg Documented By: ANTHONY Multivitamins/Vitamin C (Multivitamin Tablet) 1 tab PO DAILY [facility] Last Admin: 12/05/23 07:32 Dose: 1 tab Documented By: ANTHONY Sodium Chloride (0.9 % Sodium Chloride Flush 3 Ml Syringe) 3 ml IVFLUSH QSHIFT [facility] Last Admin: 12/05/23 07:33 Dose: Not Given Documented By: ANTHONY Non-Admin Reason: IV Running Valsartan (Valsartan 160 Mg Tablet) 160 mg PO DAILY [facility] Last Admin: 12/05/23 07:31 Dose: 160 mg Documented By: ANTHONY Labs 12/05/23 05:54 12/05/23 05:54 Labs: Laboratory Results - last 24 hr 12/04/23 12/04/23 12/04/23 14:27 14:32 16:20 MCV 96.3 MCH 31.7 MCHC 32.9 RDW 14.6 Plt Count 225 MPV 10.2 Immature Gran % (Auto) 0.4 Neut % (Auto) 86.1 H Lymph % (Auto) 5.7 L [place] % (Auto) 7.6 Eos % (Auto) 0.1 Baso % (Auto) 0.1 Lymph # (Auto) 0.6 L [place] # (Auto) 0.7 Eos # (Auto) 0.0 Baso # (Auto) 0.0 Abs Immat Gran (auto) 0.04 H Absolute Neuts (auto) 8.3 Absolute Nucleated RBC 0.000 Nucleated RBC % (auto) 0.0 Absolute Retic Percent Retic Immature Retic Fraction Retic Hgb Equivalent PT 11.8 INR 1.0 Anion Gap Cancelled Estim Creat Clear Calc Cancelled Estimated GFR Cancelled Random Glucose Cancelled Calcium Cancelled Ferritin Total Bilirubin Cancelled AST Cancelled ALT Cancelled Alkaline Phosphatase Cancelled B-Natriuretic Peptide Total Protein Cancelled Albumin Cancelled Vitamin B12 Folate Hold Red Top Urine Color Yellow Urine Appearance Turbid Urine pH 6.0 Ur Specific [place] 1.015 Urine Protein 100 (2+) H Urine Glucose (UA) Negative Urine Ketones Negative Urine Blood Moderate (2+) H Urine Nitrite Negative Ur Leukocyte Esterase Large (3+) H Urine RBC >20 H Urine WBC >50 H Ur Squamous Epith Cells 3-5 Urine Bacteria 4+ Hyaline Casts 6-10 COVID-19 (DAISY) Negative COVID-19 Clin Com See Note Influenza Type A (KISHORE) Negative Influenza Type B (KISHORE) Negative Influenza A & B Note See Note 12/04/23 12/04/23 12/04/23 16:59 18:28 23:26 MCV MCH MCHC RDW Plt Count MPV Immature Gran % (Auto) Neut % (Auto) Lymph % (Auto) [place] % (Auto) Eos % (Auto) Baso % (Auto) Lymph # (Auto) [place] # (Auto) Eos # (Auto) Baso # (Auto) Abs Immat Gran (auto) Absolute Neuts (auto) Absolute Nucleated RBC Nucleated RBC % (auto) Absolute Retic Percent Retic Immature Retic Fraction Retic Hgb Equivalent PT INR Anion Gap 16 Estim Creat Clear Calc 24.1 Estimated GFR 36 Random Glucose 106 Calcium 8.5 Ferritin Total Bilirubin 0.8 AST 49 H ALT 31 Alkaline Phosphatase 92 B-Natriuretic Peptide 80 Total Protein 6.3 L Albumin 3.1 L Vitamin B12 Folate 17.9 Hold Red Top Urine Color Urine Appearance Urine pH Ur Specific [place] Urine Protein Urine Glucose (UA) Urine Ketones Urine Blood Urine Nitrite Ur Leukocyte Esterase Urine RBC Urine WBC Ur Squamous Epith Cells Urine Bacteria Hyaline Casts COVID-19 (DAISY) COVID-19 Clin Com Influenza Type A (KISHORE) Influenza Type B (KISHORE) Influenza A & B Note 12/05/23 05:54 MCV 96.5 MCH 31.5 MCHC 32.7 RDW 15.0 Plt Count 213 MPV 10.1 Immature Gran % (Auto) 0.7 H Neut % (Auto) 83.8 H Lymph % (Auto) 7.4 L [place] % (Auto) 7.7 Eos % (Auto) 0.3 Baso % (Auto) 0.1 Lymph # (Auto) 0.6 L [place] # (Auto) 0.6 Eos # (Auto) 0.0 Baso # (Auto) 0.0 Abs Immat Gran (auto) 0.05 H Absolute Neuts (auto) 6.3 Absolute Nucleated RBC 0.000 Nucleated RBC % (auto) 0.0 Absolute Retic 0.040 Percent Retic 1.3 Immature Retic Fraction 13.3 Retic Hgb Equivalent 27.3 L PT INR Anion Gap 14 Estim Creat Clear Calc 24.8 Estimated GFR 38 Random Glucose 104 Calcium 8.2 L Ferritin 709 H Total Bilirubin AST ALT Alkaline Phosphatase B-Natriuretic Peptide Total Protein Albumin Vitamin B12 1595 H Folate Hold Red Top See Note Urine Color Urine Appearance Urine pH Ur Specific [place] Urine Protein Urine Glucose (UA) Urine Ketones Urine Blood Urine Nitrite Ur Leukocyte Esterase Urine RBC Urine WBC Ur Squamous Epith Cells Urine Bacteria Hyaline Casts COVID-19 (DAISY) COVID-19 Clin Com Influenza Type A (KISHORE) Influenza Type B (KISHORE) Influenza A & B Note Assessment and Plan (1) Kidney abscess: Status: Acute (2) Urinary tract infection: Status: Acute Plan Margo Rodriguez is 83 years old woman with pertinent history of COPD not on home oxygen, essential hypertension, mixed hyperlipidemia who presents to the emergency department for generalized weakness and will be admitted for treatment of acute UTI Acute UTI: Imaging with possible left-sided hydronephrosis and renal abscess. Continue empiric IV antibiotics. Urology consulted, appreciate assistance. Follow urine culture COPD: Not on home inhaler or home O2. DuoNeb as needed Essential hypertension: Continue metoprolol, hydrochlorothiazide and Cardura. Hold ARB for possible procedure to prevent postop hypotension Mixed hyperlipidemia: Continue statin and ezetimibe. Normocytic anemia: No evidence of iron deficiency. B12 and folate normal. Hemoglobin above transfusion threshold DVT prophylaxis: SCDs. Code status: Full. Patient will need hospitalization for at least 2 midnights for UTI/possible left renal hydronephrosis and abscess evaluation and treatment with IV fluids, empiric IV antibiotic therapy, Urology consult for further recommendations. Quality Stroke Does the patient have a stroke diagnosis?: No VTE Prior VTE?: No VTE Risk Level:: Medical - moderate - high VTE Device Contraindication: Treatment Not Indicated VTE Drug Contraindication: N/A - Med Ordered
[2023-12-05] MEDS: hydroCHLOROthiazide 12.5 MG TABLET PO (10:04)
--- NOTE | 2023-12-05 10:07 | PC.NURSE ---
Pt alert and oriented, she denies pain. systolic b/p steady above 150s. audible wheezes noted on inspiration. respiratory therapist was notified and breathing tx given. abd soft, tender to touch, BS active x4, meds given as documented. breakfast given, pt assisted to bedside commode. pt's son and Dr. Jasso are at her bedside at this time.
--- NOTE | 2023-12-05 10:16 | PC.NURSE ---
L upper arm iv infiltrated, iv removed, upper arm swollen and tender to touch, 2/10 pain reported. compress applied. will continue to observe.
--- NOTE | 2023-12-05 10:34 | PM.UROCN ---
History of Present Illness Consult details Consult date: 12/05/23 Narrative: Margo Tee is an 83 years old woman with past medical history significant for hypertension, hyperlipidemia and mild COPD -presents to the emergency department complaining of generalized weakness and decreased appetite. Patient also has history of UTIs in the last year and a half requiring p.o. antibiotic courses. She was complaining of a generalized abdominal discomfort. She did not report nausea, vomiting or chills. Her temperature was elevated at home. HPI and medical history was provided mostly by patient's son who is a physician. In the ED, Blood workup showed no leukocytosis. Creatinine is 1.38 and BUN 51. Troponin x2 is elevated but decreasing. Urinalysis consistent with urinary tract infection. Viral testing for COVID-19 and influenza is negative. CXR is negative. Abdominal pelvis CT scan with IV contrast showed left renal hydronephrosis of uncertain etiology. 2.2 cm hypoodensity concerning for renal abscess. Review of Systems Review of Systems: 10 point ROS negative other than stated in the HPI [facility] Past Medical History Medical History Constipation History of recurrent UTIs Left leg DVT Rupture of left gastrocnemius muscle Leg edema, left COPD (chronic obstructive pulmonary disease) Hyperlipidemia Essential hypertension Surgical History Surgical History History of left hip replacement History of operative procedure on lumbosacral spinal structure S/P IVC filter History of cataract surgery H/O: hysterectomy Social History Social History Household Members: Spouse Housing: Apartment Housing Other:: indep living Do you presently have visiting nurse or other home services: No Alcohol intake: never Patient Tobacco Use Status: Former Tobacco user Advance Directives Date on File: 12/05/23 Meds Allergies Allergy/AdvReac Type Severity Reaction Status Date / Time No Known Allergies Allergy Verified 12/04/23 13:04 Active Medications: Current Medications Acetaminophen (Acetaminophen 325 Mg Tablet) 975 mg PO Q6H PRN PRN Reason: Headache Last Admin: 12/04/23 22:58 Dose: 975 mg Albuterol/Ipratropium (Albuterol/Iprat 2.5/0.5mg 3 Ml Ampul.Neb) 3 ml INHALE RQ4H WHILE AWAKE PRN PRN Reason: Shortness of Breath/Wheezing Last Admin: 12/05/23 08:04 Dose: 3 ml Ascorbic Acid (Ascorbic Acid 500 Mg Tablet) 500 mg PO DAILY [facility] Last Admin: 12/05/23 07:32 Dose: 500 mg Aspirin (Aspirin 81 Mg Tab.Chew) 81 mg PO DAILY [facility] Last Admin: 12/05/23 07:32 Dose: 81 mg Atorvastatin Calcium (Atorvastatin Calcium 80 Mg Tablet) 80 mg PO DAILY [facility] Last Admin: 12/05/23 07:32 Dose: 80 mg Bisacodyl (Bisacodyl 5 Mg Tablet.Dr) 10 mg PO DAILY [facility] Last Admin: 12/05/23 07:33 Dose: 10 mg Calcium Carbonate (Calcium Carbonate 500 Mg Tablet) 500 mg PO DAILY [facility] Last Admin: 12/05/23 07:31 Dose: 500 mg Doxazosin Mesylate (Doxazosin Mesylate 2 Mg Tablet) 4 mg PO DAILY [facility]; Protocol Last Admin: 12/05/23 07:33 Dose: 4 mg Ezetimibe (Ezetimibe 10 Mg Tablet) 10 mg PO DAILY [facility] Last Admin: 12/05/23 07:32 Dose: 10 mg Hydrochlorothiazide (Hydrochlorothiazide 12.5 Mg Tablet) 12.5 mg PO DAILY [facility]; Protocol Last Admin: 12/05/23 10:04 Dose: 12.5 mg Sodium Chloride (Ns) 1,000 mls @ 80 mls/hr IVCONT .[id number] [facility] Last Admin: 12/04/23 22:59 Dose: 80 mls/hr Ceftriaxone Sodium 1 gm/ (Sodium Chloride) 50 mls @ 100 mls/hr IV Q24H [facility] Magnesium Hydroxide (Milk Of Magnesia 30 Ml Oral.Susp) 30 ml PO BEDTIME PRN PRN Reason: Constipation Metoprolol Tartrate (Metoprolol Tartrate 25 Mg Tablet) 25 mg PO BID [facility]; Protocol Last Admin: 12/05/23 07:30 Dose: 25 mg Multivitamins/Vitamin C (Multivitamin Tablet) 1 tab PO DAILY [facility] Last Admin: 12/05/23 07:32 Dose: 1 tab Sodium Chloride (0.9 % Sodium Chloride Flush 3 Ml Syringe) 3 ml IVFLUSH QSHIFT [facility] Last Admin: 12/05/23 07:33 Dose: Not Given Home Medications Medication Instructions Recorded Confirmed Last Taken Type ascorbic acid (vitamin C) 500 mg 500 mg PO DAILY 12/04/23 12/04/23 12/04/23 History tablet (Vitamin C) aspirin 81 mg chewable tablet 81 mg PO DAILY 12/04/23 12/04/23 12/04/22 History atorvastatin 80 mg tablet 80 mg PO DAILY 12/04/23 12/04/23 12/04/23 History calcium 600 mg capsule 600 mg PO DAILY 12/04/23 12/04/23 12/03/23 History doxazosin 4 mg tablet 4 mg PO DAILY 12/04/23 12/04/23 12/04/23 History ezetimibe 10 mg tablet 10 mg PO DAILY 12/04/23 12/04/23 12/04/23 History hydrochlorothiazide 12.5 mg tablet 12.5 mg PO DAILY 12/04/23 12/04/23 12/02/23 History irbesartan 300 mg tablet 300 mg PO DAILY 12/04/23 12/04/23 12/04/23 History metoprolol tartrate 25 mg tablet 25 mg PO BID 12/04/23 12/04/23 12/02/23 History multivitamin 1 tab PO DAILY 12/04/23 12/04/23 12/03/23 History Physical Exam Vital Signs: Vital Signs: Last Vital Signs Temp 98.2 F 12/05/23 07:36 Pulse 66 12/05/23 08:05 Resp 16 12/05/23 08:05 BP 174/60 H 12/05/23 07:36 Pulse Ox 96 12/05/23 07:36 O2 Del Method Room Air 12/05/23 07:36 BMI result Body Mass Index 28.3 Const: General: cooperative, healthy appearing and no acute distress Orientation/consciousness: patient oriented x3 HEENT: Head: Yes normal to inspection, Yes normocephalic and Yes atraumatic Eyes: Conjunctivae: conjunctivae normal Neck: Neck: Yes normal visual inspection and Yes trachea midline Chest: Chest palpation & inspection: normal inspection of the chest Resp: Effort & Inspection: normal respiratory effort Cardio: Rate: regular rate GI: Inspection: Yes normal to inspection Palpation (GI): Soft to palpation : General: Yes no CVA tenderness Back/Spine/Pelvis: Back: no CVA tenderness Skin: General skin exam: no rashes or lesions noted Neuro: General: patient oriented x3 Psych: Appearance: grossly normal Results Labs 12/06/23 06:07 12/06/23 06:07 Labs: Abnormal lab results 12/04/23 12/04/23 12/04/23 Range/Units 14:32 16:20 16:59 RBC 3.47 L (4.20-5.50) X10*6/uL Hgb 11.0 L (12.0-16.0) g/dl Hct 33.4 L (37.0-47.0) % Immature Gran % (Auto) (0.0-0.4) % Neut % (Auto) 86.1 H (45-73) % Lymph % (Auto) 5.7 L (20-40) % Lymph # (Auto) 0.6 L (1.2-4.9) X10*3/uL Abs Immat Gran (auto) 0.04 H (0.00-0.03) X10*3/uL Retic Hgb Equivalent (30.0-35.0) pg BUN 51 H (9-16) mg/dL Calcium (8.4-10.2) mg/dL Ferritin (10-250) ng/mL AST 49 H (5-31) U/L Troponin I High Sens 47.8 H (<3.5-17.0) ng/L Total Protein 6.3 L (6.5-8.0) g/dL Albumin 3.1 L (3.5-5.0) g/dL Vitamin B12 (200-900) pg/mL Urine Protein 100 (2+) H (Neg-Trace) mg/dL Urine Blood Moderate (2+) H (Negative) Ur Leukocyte Esterase Large (3+) H (Negative) Urine RBC >20 H (0-2) /HPF Urine WBC >50 H (0-5) /HPF 12/04/23 12/05/23 Range/Units 17:33 05:54 RBC 3.14 L (4.20-5.50) X10*6/uL Hgb 9.9 L (12.0-16.0) g/dl Hct 30.3 L (37.0-47.0) % Immature Gran % (Auto) 0.7 H (0.0-0.4) % Neut % (Auto) 83.8 H (45-73) % Lymph % (Auto) 7.4 L (20-40) % Lymph # (Auto) 0.6 L (1.2-4.9) X10*3/uL Abs Immat Gran (auto) 0.05 H (0.00-0.03) X10*3/uL Retic Hgb Equivalent 27.3 L (30.0-35.0) pg BUN 43 H (9-16) mg/dL Calcium 8.2 L (8.4-10.2) mg/dL Ferritin 709 H (10-250) ng/mL AST (5-31) U/L Troponin I High Sens 30.9 H (<3.5-17.0) ng/L Total Protein (6.5-8.0) g/dL Albumin (3.5-5.0) g/dL Vitamin B12 1595 H (200-900) pg/mL Urine Protein (Neg-Trace) mg/dL Urine Blood (Negative) Ur Leukocyte Esterase (Negative) Urine RBC (0-2) /HPF Urine WBC (0-5) /HPF Short CBC 12/04/23 12/05/23 Range/Units 14:32 05:54 WBC 9.7 7.5 (4.8-10.8) X10*3/uL Hgb 11.0 L 9.9 L (12.0-16.0) g/dl Hct 33.4 L 30.3 L (37.0-47.0) % Plt Count 225 213 (160-400) X10*3/uL BMP 12/04/23 12/04/23 12/05/23 14:32 16:59 05:54 Sodium Cancelled 138 140 Potassium Cancelled 3.4 3.4 Chloride Cancelled 99 103 Carbon Dioxide Cancelled 26 26 BUN Cancelled 51 H 43 H Creatinine Cancelled 1.38 1.34 Calcium Cancelled 8.5 8.2 L Liver Function 12/04/23 12/04/23 Range/Units 14:32 16:59 Total Bilirubin Cancelled 0.8 AST Cancelled 49 H ALT Cancelled 31 Alkaline Phosphatase Cancelled 92 Albumin Cancelled 3.1 L Urine 12/04/23 Range/Units 16:20 Urine Color Yellow Urine Appearance Turbid Urine pH 6.0 (5.0-9.0) Ur Specific [place] 1.015 (1.005-1.025) Urine Protein 100 (2+) H (Neg-Trace) mg/dL Urine Glucose (UA) Negative (Negative) mg/dL Imaging Abdomen CT scan report/results: report reviewed and image reviewed CT scan - pelvis: report reviewed and image reviewed Additional studies: Date of Service: 12/04/23 EXAMINATION: CT abdomen pelvis w IV con CLINICAL INFORMATION: Reason for Exam LUQ and LLQ tenderness, fever COMPARISON: No prior CT available for comparison. FINDINGS: LOWER THORAX: Included lung bases are clear. HEPATOBILIARY: Tiny hypodensity in the right lobe of the liver likely a cyst 8 mm image 22 series of 3, liver otherwise normal homogeneous. GALLBLADDER: Gallbladder unremarkable. SPLEEN: Spleen is normal in size. PANCREAS: No focal mass or ductal dilatation. STOMACH AND GASTROINTESTINAL TRACT: Stomach is grossly unremarkable. There is diverticulosis of the area sigmoid colon without CT evidence of acute diverticulitis. Excess amount of stool in the colon suggests constipation. Appendix not visualized probably obscured by crowding of bowel loops and paucity of intraperitoneal fat.. ADRENALS: No adrenal nodules. KIDNEYS/URETERS: There is left renal hydronephrosis, transition at the ureteral pelvic junction, no stone can be identified, uncertain etiology could be by noncalcified stone, small lesion, crossing vessel among others, there is perinephric fat stranding, hypodense area in the anterior cortex of the left kidney measure about 2.2 cm concerning for possible infection nephric abscess/nephroma. There are multiple left renal cysts the largest protruding from the upper pole measure 5.9 cm. URINARY BLADDER: Partially decompressed. PELVIC VISCERA: Evaluation of the pelvis is limited due to intense beam hardening artifact from the left hip. PERITONEUM: No free air or fluid. LYMPH NODES: No lymphadenopathy. VASCULAR:Heavy vascular calcification of the aorta without evidence of aneurysm. 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 Left hip prosthesis IMPRESSION: 1. There is left renal hydronephrosis, transition proximally at the UPJ junction, no stone can be identified, uncertain etiology could be by noncalcified stone, small lesion, crossing vessel among others, there is perinephric fat stranding, hypodense area in the anterior cortex of the left kidney measure about 2.2 cm concerning for possible infection developing renal abscess. Consider correlation with with short-term follow-up CT urogram. 2. Diverticulosis without evidence of acute diverticulitis. 3. Excess amount of stool in the colon suggests constipation. 4. 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 Assessment and Plan (1) Urinary tract infection: Qualifiers: Hematuria presence: without hematuria Urinary tract infection type: acute cystitis Qualified Code(s): N30.00 - Acute cystitis without hematuria Status: Acute (2) Kidney abscess: Status: Acute (3) Hydronephrosis: Status: Acute (4) Renal cyst: Status: Acute Plan Patient is clinically improving with IV Abx, await urine c/s Hold on ureteral stent for now Procedures Date of Service Date of Service: 12/06/23
--- NOTE | 2023-12-05 10:40 | PC.NURSE ---
22g inserted R hand. pt tolerated well. line patent.
--- NOTE | 2023-12-05 16:35 | PC.NURSE ---
Lungs sounds ins and exp wheezes,rhonhi,updraft given with no effect,pt son who is physician prefer pt does not get steroids for tx, wants to be called first Dr. Medel notified,son phone number provided
[2023-12-05] MEDS: Acetaminophen 325 MG TABLET 975 MG PO (17:04)
[2023-12-05] MEDS: cefTRIAXone sodium 1 GM in 0.9 % Sodium Chloride 50 ML IV (17:12)
[2023-12-05] MEDS: 0.9 % Sodium Chloride 1,000 ML 80 ML IVCONT (22:16)
[2023-12-06] VITALS (9 sets, daily range): BP systolic 115–183; BP diastolic 54–76; PULSE 60–81; RESP 16–20; TEMP 36.4–37; O2SAT 93–95
[2023-12-06 06:28] LABS: Anion Gap 13 (12-20); Blood Urea Nitrogen 35 mg/dL (9-16); Calcium 8.3 mg/dL (8.4-10.2); Carbon Dioxide 25 mmol/L (22-29); Chloride 106 mmol/L (96-108); Creatinine Clr Calc Pharmacy 33.6; Estimated Glomerular Filt Rate 53; Glucose Random 101 mg/dL (60-115); Potassium 3.3 mmol/L (3.3-5.1); Sodium 141 mmol/L (135-145)
[2023-12-06 06:29] LABS: Hematocrit 31.3 % (37.0-47.0); Hemoglobin 10.1 g/dl (12.0-16.0); Mean Corpuscular HGB Conc 32.3 g/dl (31.0-35.0); Mean Corpuscular Hemoglobin 31.2 pg (27.0-33.0); Mean Corpuscular Volume 96.6 fL (80.0-98.0); Platelet Count 233 X10*3/uL (160-400); Red Blood Count 3.24 X10*6/uL (4.20-5.50); Red Cell Distribution Width 15.4 % (11.0-16.0); White Blood Count 9.5 X10*3/uL (4.8-10.8)
[2023-12-06] MEDS: Albuterol/Iprat 2.5/0.5MG 3 ML AMPUL.NEB INHALE ×4 (07:41→19:26)
[2023-12-06] MEDS: Metoprolol Tartrate 25 MG TABLET PO ×2 (08:30→20:18)
[2023-12-06] MEDS: hydroCHLOROthiazide 12.5 MG TABLET PO (08:30)
[2023-12-06] MEDS: Atorvastatin Calcium 80 MG TABLET PO (08:30)
[2023-12-06] MEDS: Multivitamin TABLET 1 TAB PO (08:30)
[2023-12-06] MEDS: Ezetimibe 10 MG TABLET PO (08:30)
[2023-12-06] MEDS: Ascorbic Acid 500 MG TABLET PO (08:30)
[2023-12-06] MEDS: Aspirin 81 MG TAB.CHEW PO (08:30)
[2023-12-06] MEDS: Doxazosin Mesylate 2 MG TABLET 4 MG PO (08:30)
[2023-12-06] MEDS: 0.9 % Sodium Chloride Flush 3 ML SYRINGE IVFLUSH ×3 (08:31→23:38)
--- NOTE | 2023-12-06 10:57 | MHC.CM.PN ---
pt lives with who is an md she has no home services at this point she has a ride home when dcd dc plan home no servie
[2023-12-06] MEDS: 0.9 % Sodium Chloride 1,000 ML 80 ML IVCONT (11:18)
--- NOTE | 2023-12-06 11:20 | P.PNUR_ITS ---
Subjective Subjective Date of Service: 12/06/23 Patient reports: no new complaints Interval history: I spoke with pt's son today, The patient is stable, WBC 9.5, BUN/Creat improving. Urine c/s - E. coli sensitive to Ceftriaxone. Physical Exam 2 Vital Signs: Vital Signs: Last Vital Signs Temp 97.9 F 12/06/23 07:58 Pulse 66 12/06/23 07:58 Resp 20 12/06/23 07:58 BP 183/76 H 12/06/23 07:58 Pulse Ox 94 12/06/23 07:58 O2 Del Method Room Air 12/06/23 07:58 BMI result Body Mass Index 28.3 Urology Results Labs 12/06/23 06:07 12/06/23 06:07 Labs: Laboratory Results - last 24 hr 12/06/23 06:07 WBC 9.5 RBC 3.24 L Hgb 10.1 L Hct 31.3 L MCV 96.6 MCH 31.2 MCHC 32.3 RDW 15.4 Plt Count 233 MPV 10.0 Absolute Nucleated RBC 0.000 Nucleated RBC % (auto) 0.0 Sodium 141 Potassium 3.3 Chloride 106 Carbon Dioxide 25 Anion Gap 13 BUN 35 H Creatinine 0.99 Estim Creat Clear Calc 33.6 Estimated GFR 53 Random Glucose 101 Calcium 8.3 L Progress Note: A&P Assessment and plan (1) Renal cyst: Status: Acute (2) Hydronephrosis: Status: Acute (3) Urinary tract infection: Status: Acute Plan UTI, pyelo, mild hydro with small hypodensity, nephroma vs abscess Pt currently stable on IV abx Will consider stent tomorrow if WBC not improving Please make pt NPO past MN and I will reassess tomorrow Time Spent With Patient Time: Total time managing care of this patient today ____ minutes. Progress Note: Quality Stroke Does the patient have a stroke diagnosis?: No
--- NOTE | 2023-12-06 12:34 | HO.PM.IMPN ---
Subjective Subjective Date of Service: 12/06/23 Interval History: No acute issues overnight. Remains tolerant of therapies Review of Systems Denies chest pain Denies shortness of breath Denies nausea vomiting diarrhea Denies fever chills Physical Exam Vital Signs: Vital Signs: Last Vital Signs Temp 97.9 F 12/06/23 07:58 Pulse 62 12/06/23 11:46 Resp 18 12/06/23 11:46 BP 115/54 L 12/06/23 11:37 Pulse Ox 94 12/06/23 07:58 O2 Del Method Room Air 12/06/23 07:58 BMI result Body Mass Index 28.3 Const: Other: Awake alert no acute distress Resp: Other: Clear to auscultation bilaterally no rales rhonchi wheezes Cardio: Other: No S4; positive S1-S2; no S3 murmurs rubs or gallops GI: Other: Soft nontender nondistended normoactive bowel sounds Extrem: Other: No edema bilaterally Objective Data Active Medications Acetaminophen (Acetaminophen 325 Mg Tablet) 975 mg PO Q6H PRN PRN Reason: Headache Last Admin: 12/05/23 17:04 Dose: 975 mg Documented By: DONTE Albuterol/Ipratropium (Albuterol/Iprat 2.5/0.5mg 3 Ml Ampul.Neb) 3 ml INHALE RQ4H WHILE AWAKE [facility] Last Admin: 12/06/23 11:42 Dose: 3 ml Documented By: RICHARD Ascorbic Acid (Ascorbic Acid 500 Mg Tablet) 500 mg PO DAILY [facility] Last Admin: 12/06/23 08:30 Dose: 500 mg Documented By: ENIO Aspirin (Aspirin 81 Mg Tab.Chew) 81 mg PO DAILY [facility] Last Admin: 12/06/23 08:30 Dose: 81 mg Documented By: ENIO Atorvastatin Calcium (Atorvastatin Calcium 80 Mg Tablet) 80 mg PO DAILY [facility] Last Admin: 12/06/23 08:30 Dose: 80 mg Documented By: ENIO Bisacodyl (Bisacodyl 5 Mg Tablet.Dr) 10 mg PO DAILY [facility] Last Admin: 12/06/23 09:57 Dose: Not Given Documented By: ENIO Non-Admin Reason: BM today Calcium Carbonate (Calcium Carbonate 500 Mg Tablet) 500 mg PO DAILY [facility] Last Admin: 12/06/23 08:30 Dose: 500 mg Documented By: ENIO Doxazosin Mesylate (Doxazosin Mesylate 2 Mg Tablet) 4 mg PO DAILY [facility]; Protocol Last Admin: 12/06/23 08:30 Dose: 4 mg Documented By: ENIO Ezetimibe (Ezetimibe 10 Mg Tablet) 10 mg PO DAILY [facility] Last Admin: 12/06/23 08:30 Dose: 10 mg Documented By: ENIO Hydrochlorothiazide (Hydrochlorothiazide 12.5 Mg Tablet) 12.5 mg PO DAILY [facility]; Protocol Last Admin: 12/06/23 08:30 Dose: 12.5 mg Documented By: ENIO Sodium Chloride (Ns) 1,000 mls @ 80 mls/hr IVCONT .[id number] [facility] Last Admin: 12/06/23 11:18 Dose: 80 mls/hr Documented By: ENIO Ceftriaxone Sodium 1 gm/ (Sodium Chloride) 50 mls @ 100 mls/hr IV Q24H [facility] Last Infusion: 12/05/23 17:54 Dose: Infused Documented By: DONTE Magnesium Hydroxide (Milk Of Magnesia 30 Ml Oral.Susp) 30 ml PO BEDTIME PRN PRN Reason: Constipation Metoprolol Tartrate (Metoprolol Tartrate 25 Mg Tablet) 25 mg PO BID [facility]; Protocol Last Admin: 12/06/23 08:30 Dose: 25 mg Documented By: ENIO Multivitamins/Vitamin C (Multivitamin Tablet) 1 tab PO DAILY [facility] Last Admin: 12/06/23 08:30 Dose: 1 tab Documented By: ENIO Sodium Chloride (0.9 % Sodium Chloride Flush 3 Ml Syringe) 3 ml IVFLUSH QSHIFT [facility] Last Admin: 12/06/23 08:31 Dose: 3 ml Documented By: ENIO Labs 12/06/23 06:07 12/06/23 06:07 Labs: Laboratory Results - last 24 hr 12/06/23 06:07 MCV 96.6 MCH 31.2 MCHC 32.3 RDW 15.4 Plt Count 233 MPV 10.0 Absolute Nucleated RBC 0.000 Nucleated RBC % (auto) 0.0 Anion Gap 13 Estim Creat Clear Calc 33.6 Estimated GFR 53 Random Glucose 101 Calcium 8.3 L Microbiology Microbiology Results: Microbiology 12/04/23 17:05 Urine Culture - Final Urine clean catch - Urine roper top Escherichia coli Assessment and Plan (1) Urinary tract infection: Status: Acute (2) Essential hypertension: Status: Acute Plan 83 year old woman with pertinent history of COPD not on home oxygen, essential hypertension, mixed hyperlipidemia who presents to the emergency department for generalized weakness and will be admitted for treatment of acute UTI; 1.Acute UTI(EColi ss CTX) -imaging with possible left-sided hydronephrosis and renal abscess -ceftriaxone(2) -urology to see in a.m.. If white count elevated will consider stenting at that time 2.COPD -not a factor this admission -continue outpatient therapies 3.Essential hypertension -acceptable control on current therapies -adjust as indicated SCDs. Full. Patient requires ongoing hospitalization for IV antibiotics to treat UTI pending decision for stent placement Quality Stroke Does the patient have a stroke diagnosis?: No VTE Prior VTE?: No VTE Risk Level:: Medical - moderate - high VTE Device Contraindication: Treatment Not Indicated VTE Drug Contraindication: N/A - Med Ordered
[2023-12-06] MEDS: cefTRIAXone sodium 1 GM in 0.9 % Sodium Chloride 50 ML IV (17:21)
--- NOTE | 2023-12-06 17:35 | PC.NURSE ---
Lungs sounds fine crackles left side throughout and right base,pt. denies SOB ,Dr. Celestin notified
[2023-12-07] VITALS (15 sets, daily range): BP systolic 129–189; BP diastolic 54–81; PULSE 55–88; RESP 16–20; TEMP 36.3–36.9; O2SAT 92–100; BMI 28.3
[2023-12-07 05:45] LABS: MANUAL DIFF FLAG NO
[2023-12-07 05:46] LABS: Basophils Percent Auto 0.2 % (0-2); Eosinophils Absolute Auto 0.1 X10*3/uL (0.0-0.4); Eosinophils Percent Auto 1.3 % (0-4); Hematocrit 31.5 % (37.0-47.0); Hemoglobin 10.3 g/dl (12.0-16.0); Imm Gran Abs Auto 0.18 X10*3/uL (0.00-0.03); Lymphocytes Absolute Auto 1.1 X10*3/uL (1.2-4.9); Lymphocytes Percent Auto 11.8 % (20-40); Mean Corpuscular HGB Conc 32.7 g/dl (31.0-35.0); Mean Corpuscular Hemoglobin 31.1 pg (27.0-33.0); Mean Corpuscular Volume 95.2 fL (80.0-98.0); Mean Platelet Volume 9.6 fL (9.4-12.3); Monocytes Absolute Auto 0.7 X10*3/uL (0.1-1.2); Monocytes Percent Auto 7.8 % (2-11); Neutrophils Percent Auto 76.9 % (45-73); Platelet Count 279 X10*3/uL (160-400); Red Blood Count 3.31 X10*6/uL (4.20-5.50); Red Cell Distribution Width 15.5 % (11.0-16.0); White Blood Count 9.1 X10*3/uL (4.8-10.8)
[2023-12-07 06:13] LABS: Alanine Aminotransferase 38 U/L (0-31); Albumin Level 3.1 g/dL (3.5-5.0); Alkaline Phosphatase 112 U/L (39-117); Anion Gap 15 (12-20); Aspartate Amino Transferase 42 U/L (5-31); Bilirubin Total 0.3 mg/dL (0.0-1.0); Blood Urea Nitrogen 25 mg/dL (9-16); Calcium 8.8 mg/dL (8.4-10.2); Carbon Dioxide 25 mmol/L (22-29); Chloride 107 mmol/L (96-108); Creatinine Clr Calc Pharmacy 40.1; Estimated Glomerular Filt Rate > 60; Glucose Fasting 107 mg/dL (60-99); Potassium 3.3 mmol/L (3.3-5.1); Sodium 144 mmol/L (135-145); Total Protein 6.3 g/dL (6.5-8.0)
[2023-12-07] MEDS: Albuterol/Iprat 2.5/0.5MG 3 ML AMPUL.NEB INHALE ×3 (07:55→19:50)
[2023-12-07] MEDS: 0.9 % Sodium Chloride Flush 3 ML SYRINGE IVFLUSH ×2 (08:05→18:04)
[2023-12-07] MEDS: Atorvastatin Calcium 80 MG TABLET PO (08:06)
[2023-12-07] MEDS: Multivitamin TABLET 1 TAB PO (08:06)
[2023-12-07] MEDS: hydroCHLOROthiazide 12.5 MG TABLET PO (08:06)
[2023-12-07] MEDS: Doxazosin Mesylate 2 MG TABLET 4 MG PO (08:06)
[2023-12-07] MEDS: bisacodyL 5 MG TABLET.DR 10 MG PO (08:07)
[2023-12-07] MEDS: Ascorbic Acid 500 MG TABLET PO (08:08)
[2023-12-07] MEDS: Ezetimibe 10 MG TABLET PO (08:08)
[2023-12-07] MEDS: Aspirin 81 MG TAB.CHEW PO (08:08)
[2023-12-07] MEDS: Metoprolol Tartrate 25 MG TABLET PO ×2 (08:08→20:50)
--- NOTE | 2023-12-07 08:45 | P.PNUR_ITS ---
Subjective Subjective Date of Service: 12/07/23 Patient reports: no new complaints Interval history: Clinically stable but Leukocystosis remains unchanged. Plan for cysto left ureteral stent today. urine c/s ecoli. Physical Exam 2 Vital Signs: Vital Signs: Last Vital Signs Temp 97.5 F 12/07/23 08:01 Pulse 76 12/07/23 08:01 Resp 17 12/07/23 08:01 BP 168/70 H 12/07/23 08:01 Pulse Ox 98 12/07/23 08:01 O2 Del Method Room Air 12/07/23 08:01 BMI result Body Mass Index 28.3 Urology Results Labs 12/07/23 05:26 12/07/23 05:26 Labs: Laboratory Results - last 24 hr 12/07/23 05:26 WBC 9.1 RBC 3.31 L Hgb 10.3 L Hct 31.5 L MCV 95.2 MCH 31.1 MCHC 32.7 RDW 15.5 Plt Count 279 MPV 9.6 Immature Gran % (Auto) 2.0 H Neut % (Auto) 76.9 H Lymph % (Auto) 11.8 L [place] % (Auto) 7.8 Eos % (Auto) 1.3 Baso % (Auto) 0.2 Lymph # (Auto) 1.1 L [place] # (Auto) 0.7 Eos # (Auto) 0.1 Baso # (Auto) 0.0 Abs Immat Gran (auto) 0.18 H Absolute Neuts (auto) 7.0 Absolute Nucleated RBC 0.000 Nucleated RBC % (auto) 0.0 Sodium 144 Potassium 3.3 Chloride 107 Carbon Dioxide 25 Anion Gap 15 BUN 25 H Creatinine 0.83 Estim Creat Clear Calc 40.1 Estimated GFR > 60 Fasting Glucose 107 H Calcium 8.8 D Total Bilirubin 0.3 AST 42 H ALT 38 H Alkaline Phosphatase 112 Total Protein 6.3 L Albumin 3.1 L Progress Note: A&P Assessment and plan (1) Renal cyst: Status: Acute (2) Hydronephrosis: Status: Acute (3) Urinary tract infection: Status: Acute Plan UTI, pyelo, hydro with small hypodensity, nephroma vs abscess IV Ceftriaxone Cysto left ureteral stent, retrograde today Keep NPO Time Spent With Patient Time: Total time managing care of this patient today ____ minutes. Progress Note: Quality Stroke Does the patient have a stroke diagnosis?: No
--- NOTE | 2023-12-07 12:10 | P.PNIM_ITS ---
Subjective Subjective Date of Service: 12/07/23 Interval History: No acute issues overnight. Continues to be NPO for stent placement later today Review of Systems Denies chest pain Denies shortness of breath Denies nausea vomiting diarrhea Denies fever chills Physical Exam 2 Vital Signs: Vital Signs: Last Vital Signs Temp 97.5 F 12/07/23 08:01 Pulse 62 12/07/23 11:18 Resp 18 12/07/23 11:18 BP 168/70 H 12/07/23 08:01 Pulse Ox 98 12/07/23 08:01 O2 Del Method Room Air 12/07/23 08:01 BMI result Body Mass Index 28.3 Const: Other: Awake alert no acute distress Resp: Other: Clear to auscultation bilaterally no rales rhonchi wheezes Cardio: Other: No S4; positive S1-S2; no S3 murmurs rubs or gallops GI: Other: Soft nontender nondistended normoactive bowel sounds Extrem: Other: No edema bilaterally Objective Data Active Medications Acetaminophen (Acetaminophen 325 Mg Tablet) 975 mg PO Q6H PRN PRN Reason: Headache Last Admin: 12/05/23 17:04 Dose: 975 mg Documented By: DONTE Albuterol/Ipratropium (Albuterol/Iprat 2.5/0.5mg 3 Ml Ampul.Neb) 3 ml INHALE RQ4H WHILE AWAKE [facility] Last Admin: 12/07/23 11:16 Dose: 3 ml Documented By: THA Ascorbic Acid (Ascorbic Acid 500 Mg Tablet) 500 mg PO DAILY [facility] Last Admin: 12/07/23 08:08 Dose: 500 mg Documented By: BETY Aspirin (Aspirin 81 Mg Tab.Chew) 81 mg PO DAILY [facility] Last Admin: 12/07/23 08:08 Dose: 81 mg Documented By: BETY Atorvastatin Calcium (Atorvastatin Calcium 80 Mg Tablet) 80 mg PO DAILY [facility] Last Admin: 12/07/23 08:06 Dose: 80 mg Documented By: BETY Bisacodyl (Bisacodyl 5 Mg Tablet.) 10 mg PO DAILY [facility] Last Admin: 12/07/23 08:07 Dose: 10 mg Documented By: BETY Calcium Carbonate (Calcium Carbonate 500 Mg Tablet) 500 mg PO DAILY [facility] Last Admin: 12/07/23 08:06 Dose: 500 mg Documented By: BTEY Doxazosin Mesylate (Doxazosin Mesylate 2 Mg Tablet) 4 mg PO DAILY [facility]; Protocol Last Admin: 12/07/23 08:06 Dose: 4 mg Documented By: BETY Ezetimibe (Ezetimibe 10 Mg Tablet) 10 mg PO DAILY [facility] Last Admin: 12/07/23 08:08 Dose: 10 mg Documented By: BETY Hydrochlorothiazide (Hydrochlorothiazide 12.5 Mg Tablet) 12.5 mg PO DAILY [facility]; Protocol Last Admin: 12/07/23 08:06 Dose: 12.5 mg Documented By: BETY Ceftriaxone Sodium 1 gm/ (Sodium Chloride) 50 mls @ 100 mls/hr IV Q24H [facility] Last Infusion: 12/06/23 17:53 Dose: Infused Documented By: DONTE Magnesium Hydroxide (Milk Of Magnesia 30 Ml Oral.Susp) 30 ml PO BEDTIME PRN PRN Reason: Constipation Melatonin (Melatonin 3 Mg Tablet) 6 mg PO BEDTIME PRN PRN Reason: Insomnia Metoprolol Tartrate (Metoprolol Tartrate 25 Mg Tablet) 25 mg PO BID [facility]; Protocol Last Admin: 12/07/23 08:08 Dose: 25 mg Documented By: BETY Multivitamins/Vitamin C (Multivitamin Tablet) 1 tab PO DAILY [facility] Last Admin: 12/07/23 08:06 Dose: 1 tab Documented By: BETY Sodium Chloride (0.9 % Sodium Chloride Flush 3 Ml Syringe) 3 ml IVFLUSH QSHIFT [facility] Last Admin: 12/07/23 08:05 Dose: 3 ml Documented By: BETY Labs 12/07/23 05:26 12/07/23 05:26 Labs: Laboratory Results - last 24 hr 12/07/23 05:26 MCV 95.2 MCH 31.1 MCHC 32.7 RDW 15.5 Plt Count 279 MPV 9.6 Immature Gran % (Auto) 2.0 H Neut % (Auto) 76.9 H Lymph % (Auto) 11.8 L [place] % (Auto) 7.8 Eos % (Auto) 1.3 Baso % (Auto) 0.2 Lymph # (Auto) 1.1 L [place] # (Auto) 0.7 Eos # (Auto) 0.1 Baso # (Auto) 0.0 Abs Immat Gran (auto) 0.18 H Absolute Neuts (auto) 7.0 Absolute Nucleated RBC 0.000 Nucleated RBC % (auto) 0.0 Anion Gap 15 Estim Creat Clear Calc 40.1 Estimated GFR > 60 Fasting Glucose 107 H Calcium 8.8 D Total Bilirubin 0.3 AST 42 H ALT 38 H Alkaline Phosphatase 112 Total Protein 6.3 L Albumin 3.1 L Microbiology Microbiology Results: Microbiology 12/04/23 17:05 Urine Culture - Final Urine clean catch - Urine roper top Escherichia coli Assessment and Plan (1) Urinary tract infection: Status: Acute (2) COPD (chronic obstructive pulmonary disease): Status: Acute Plan 83 year old woman with pertinent history of COPD not on home oxygen, essential hypertension, mixed hyperlipidemia who presents to the emergency department for generalized weakness and will be admitted for treatment of acute UTI; 1.Acute UTI(EColi ss CTX) -imaging with possible left-sided hydronephrosis and renal abscess -ceftriaxone(3) -NPO for cysto with stent later today 2.COPD -not a factor this admission -continue outpatient therapies 3.Essential hypertension -acceptable control on current therapies -adjust as indicated SCDs. Full. Patient requires ongoing hospitalization for IV antibiotics to treat UTI pending decision for stent placement Quality Stroke Does the patient have a stroke diagnosis?: No VTE Prior VTE?: No VTE Risk Level:: Medical - moderate - high VTE Device Contraindication: Treatment Not Indicated VTE Drug Contraindication: N/A - Med Ordered
--- NOTE | 2023-12-07 13:17 | MHC.CM.PN ---
Per MD rounds no discharge today. Patient is scheduled for stent placement later today. DP home with family support and transport.
--- NOTE | 2023-12-07 15:04 | HO.ANESPROP2 ---
HPI - Anesthesia Eval Consult details Narrative: 83 yo female patient for Cysto, Left ureteral stent PMFSH Active Problems Active Problems: All Active Problems (Updated 12/07/23 @ 14:55 by Aixa Wu MD) Renal cyst (Acute) Left Hydronephrosis (Acute) Constipation (Acute) COPD (chronic obstructive pulmonary disease) (Acute) Hyperlipidemia (Acute) Essential hypertension (Acute) Urinary tract infection (Acute) Kidney abscess (Acute) Leg edema, left (Chronic) Degenerative disease lumbar spine Mild scoliosis Heart murmur Past Medical History Medical History Constipation History of recurrent UTIs Left leg DVT Rupture of left gastrocnemius muscle Leg edema, left COPD (chronic obstructive pulmonary disease) Hyperlipidemia Essential hypertension Family History Family history of problems with anesthesia: No Surgical History Surgical History History of left hip replacement History of operative procedure on lumbosacral spinal structure S/P IVC filter History of cataract surgery H/O: hysterectomy History of Problems with Anesthesia: No Social History Social History Household Members: Spouse Housing: Apartment Housing Other:: indep living Do you presently have visiting nurse or other home services: No Alcohol intake: never Patient Tobacco Use Status: Former Tobacco user Advance Directives Date on File: 12/05/23 service: No Meds Allergies Allergy/AdvReac Type Severity Reaction Status Date / Time No Known Allergies Allergy Verified 12/04/23 13:04 Active Medications: Current Medications Acetaminophen (Acetaminophen 325 Mg Tablet) 975 mg PO Q6H PRN PRN Reason: Headache Last Admin: 12/05/23 17:04 Dose: 975 mg Albuterol/Ipratropium (Albuterol/Iprat 2.5/0.5mg 3 Ml Ampul.Neb) 3 ml INHALE RQ4H WHILE AWAKE [facility] Last Admin: 12/07/23 11:16 Dose: 3 ml Ascorbic Acid (Ascorbic Acid 500 Mg Tablet) 500 mg PO DAILY [facility] Last Admin: 12/07/23 08:08 Dose: 500 mg Aspirin (Aspirin 81 Mg Tab.Chew) 81 mg PO DAILY [facility] Last Admin: 12/07/23 08:08 Dose: 81 mg Atorvastatin Calcium (Atorvastatin Calcium 80 Mg Tablet) 80 mg PO DAILY [facility] Last Admin: 12/07/23 08:06 Dose: 80 mg Bisacodyl (Bisacodyl 5 Mg Tablet.Dr) 10 mg PO DAILY [facility] Last Admin: 12/07/23 08:07 Dose: 10 mg Calcium Carbonate (Calcium Carbonate 500 Mg Tablet) 500 mg PO DAILY [facility] Last Admin: 12/07/23 08:06 Dose: 500 mg Doxazosin Mesylate (Doxazosin Mesylate 2 Mg Tablet) 4 mg PO DAILY [facility]; Protocol Last Admin: 12/07/23 08:06 Dose: 4 mg Ezetimibe (Ezetimibe 10 Mg Tablet) 10 mg PO DAILY [facility] Last Admin: 12/07/23 08:08 Dose: 10 mg Hydrochlorothiazide (Hydrochlorothiazide 12.5 Mg Tablet) 12.5 mg PO DAILY [facility]; Protocol Last Admin: 12/07/23 08:06 Dose: 12.5 mg Ceftriaxone Sodium 1 gm/ (Sodium Chloride) 50 mls @ 100 mls/hr IV Q24H [facility] Last Infusion: 12/06/23 17:53 Dose: Infused Magnesium Hydroxide (Milk Of Magnesia 30 Ml Oral.Susp) 30 ml PO BEDTIME PRN PRN Reason: Constipation Melatonin (Melatonin 3 Mg Tablet) 6 mg PO BEDTIME PRN PRN Reason: Insomnia Metoprolol Tartrate (Metoprolol Tartrate 25 Mg Tablet) 25 mg PO BID [facility]; Protocol Last Admin: 12/07/23 08:08 Dose: 25 mg Multivitamins/Vitamin C (Multivitamin Tablet) 1 tab PO DAILY [facility] Last Admin: 12/07/23 08:06 Dose: 1 tab Sodium Chloride (0.9 % Sodium Chloride Flush 3 Ml Syringe) 3 ml IVFLUSH QSHIFT [facility] Last Admin: 12/07/23 08:05 Dose: 3 ml Home Medications Medication Instructions Recorded Confirmed Last Taken Type ascorbic acid (vitamin C) 500 mg 500 mg PO DAILY 12/04/23 12/04/23 12/04/23 History tablet (Vitamin C) aspirin 81 mg chewable tablet 81 mg PO DAILY 12/04/23 12/04/23 12/04/22 History atorvastatin 80 mg tablet 80 mg PO DAILY 12/04/23 12/04/23 12/04/23 History calcium 600 mg capsule 600 mg PO DAILY 12/04/23 12/04/23 12/03/23 History doxazosin 4 mg tablet 4 mg PO DAILY 12/04/23 12/04/23 12/04/23 History ezetimibe 10 mg tablet 10 mg PO DAILY 12/04/23 12/04/23 12/04/23 History hydrochlorothiazide 12.5 mg tablet 12.5 mg PO DAILY 12/04/23 12/04/23 12/02/23 History irbesartan 300 mg tablet 300 mg PO DAILY 12/04/23 12/04/23 12/04/23 History metoprolol tartrate 25 mg tablet 25 mg PO BID 12/04/23 12/04/23 12/02/23 History multivitamin 1 tab PO DAILY 12/04/23 12/04/23 12/03/23 History Exam Height,Weight and Vital Signs: Height 4 ft 11 in Weight 63.503 kg Last Vital Signs Temp 97.5 F 12/07/23 08:01 Pulse 62 12/07/23 11:18 Resp 18 12/07/23 11:18 BP 168/70 H 12/07/23 08:01 Pulse Ox 98 12/07/23 08:01 O2 Del Method Room Air 12/07/23 08:01 Vital Signs Temp Pulse Resp BP Pulse Ox O2 Del Method 12/07/23 14:55 98.4 F 55 16 189/54 H 96 Room Air 12/07/23 11:18 62 18 12/07/23 08:01 97.5 F 76 17 168/70 H 98 Room Air 12/07/23 07:57 88 20 12/07/23 03:33 162/70 H 12/07/23 03:12 97.4 F 75 17 182/66 H 95 Room Air 12/06/23 19:46 97.6 F 81 17 140/71 H 95 Room Air 12/06/23 19:26 79 18 12/06/23 15:33 71 18 Pertinent Lab Results Pertinent Lab Results: Laboratory Tests 12/04/23 12/04/23 12/04/23 14:27 14:32 16:20 WBC 9.7 RBC 3.47 L Hgb 11.0 L Hct 33.4 L MCV 96.3 MCH 31.7 MCHC 32.9 RDW 14.6 Plt Count 225 MPV 10.2 Immature Gran % (Auto) 0.4 Neut % (Auto) 86.1 H Lymph % (Auto) 5.7 L [place] % (Auto) 7.6 Eos % (Auto) 0.1 Baso % (Auto) 0.1 Lymph # (Auto) 0.6 L [place] # (Auto) 0.7 Eos # (Auto) 0.0 Baso # (Auto) 0.0 Abs Immat Gran (auto) 0.04 H Absolute Neuts (auto) 8.3 Absolute Nucleated RBC 0.000 Nucleated RBC % (auto) 0.0 Absolute Retic Percent Retic Immature Retic Fraction Retic Hgb Equivalent PT 11.8 INR 1.0 Sodium Cancelled Potassium Cancelled Chloride Cancelled Carbon Dioxide Cancelled Anion Gap Cancelled BUN Cancelled Creatinine Cancelled Estim Creat Clear Calc Cancelled Estimated GFR Cancelled Random Glucose Cancelled Fasting Glucose Calcium Cancelled Ferritin Total Bilirubin Cancelled AST Cancelled ALT Cancelled Alkaline Phosphatase Cancelled Troponin I High Sens 47.8 H B-Natriuretic Peptide Total Protein Cancelled Albumin Cancelled Vitamin B12 Folate Hold Red Top Urine Color Yellow Urine Appearance Turbid Urine pH 6.0 Ur Specific [place] 1.015 Urine Protein 100 (2+) H Urine Glucose (UA) Negative Urine Ketones Negative Urine Blood Moderate (2+) H Urine Nitrite Negative Ur Leukocyte Esterase Large (3+) H Urine RBC >20 H Urine WBC >50 H Ur Squamous Epith Cells 3-5 Urine Bacteria 4+ Hyaline Casts 6-10 COVID-19 (DAISY) Negative COVID-19 Clin Com See Note Influenza Type A (KISHORE) Negative Influenza Type B (KISHORE) Negative Influenza A & B Note See Note 12/04/23 12/04/23 12/04/23 16:59 17:33 18:28 WBC RBC Hgb Hct MCV MCH MCHC RDW Plt Count MPV Immature Gran % (Auto) Neut % (Auto) Lymph % (Auto) [place] % (Auto) Eos % (Auto) Baso % (Auto) Lymph # (Auto) [place] # (Auto) Eos # (Auto) Baso # (Auto) Abs Immat Gran (auto) Absolute Neuts (auto) Absolute Nucleated RBC Nucleated RBC % (auto) Absolute Retic Percent Retic Immature Retic Fraction Retic Hgb Equivalent PT INR Sodium 138 Potassium 3.4 Chloride 99 Carbon Dioxide 26 Anion Gap 16 BUN 51 H Creatinine 1.38 Estim Creat Clear Calc 24.1 Estimated GFR 36 Random Glucose 106 Fasting Glucose Calcium 8.5 Ferritin Total Bilirubin 0.8 AST 49 H ALT 31 Alkaline Phosphatase 92 Troponin I High Sens 30.9 H B-Natriuretic Peptide 80 Total Protein 6.3 L Albumin 3.1 L Vitamin B12 Folate Hold Red Top Urine Color Urine Appearance Urine pH Ur Specific [place] Urine Protein Urine Glucose (UA) Urine Ketones Urine Blood Urine Nitrite Ur Leukocyte Esterase Urine RBC Urine WBC Ur Squamous Epith Cells Urine Bacteria Hyaline Casts COVID-19 (DAISY) COVID-19 Clin Com Influenza Type A (KISHORE) Influenza Type B (KISHORE) Influenza A & B Note 12/04/23 12/05/23 12/06/23 23:26 05:54 06:07 WBC 7.5 9.5 RBC 3.14 L 3.24 L Hgb 9.9 L 10.1 L Hct 30.3 L 31.3 L MCV 96.5 96.6 MCH 31.5 31.2 MCHC 32.7 32.3 RDW 15.0 15.4 Plt Count 213 233 MPV 10.1 10.0 Immature Gran % (Auto) 0.7 H Neut % (Auto) 83.8 H Lymph % (Auto) 7.4 L [place] % (Auto) 7.7 Eos % (Auto) 0.3 Baso % (Auto) 0.1 Lymph # (Auto) 0.6 L [place] # (Auto) 0.6 Eos # (Auto) 0.0 Baso # (Auto) 0.0 Abs Immat Gran (auto) 0.05 H Absolute Neuts (auto) 6.3 Absolute Nucleated RBC 0.000 0.000 Nucleated RBC % (auto) 0.0 0.0 Absolute Retic 0.040 Percent Retic 1.3 Immature Retic Fraction 13.3 Retic Hgb Equivalent 27.3 L PT INR Sodium 140 141 Potassium 3.4 3.3 Chloride 103 106 Carbon Dioxide 26 25 Anion Gap 14 13 BUN 43 H 35 H Creatinine 1.34 0.99 Estim Creat Clear Calc 24.8 33.6 Estimated GFR 38 53 Random Glucose 104 101 Fasting Glucose Calcium 8.2 L 8.3 L Ferritin 709 H Total Bilirubin AST ALT Alkaline Phosphatase Troponin I High Sens B-Natriuretic Peptide Total Protein Albumin Vitamin B12 1595 H Folate 17.9 Hold Red Top See Note Urine Color Urine Appearance Urine pH Ur Specific [place] Urine Protein Urine Glucose (UA) Urine Ketones Urine Blood Urine Nitrite Ur Leukocyte Esterase Urine RBC Urine WBC Ur Squamous Epith Cells Urine Bacteria Hyaline Casts COVID-19 (DAISY) COVID-19 Clin Com Influenza Type A (KISHORE) Influenza Type B (KISHORE) Influenza A & B Note 12/07/23 05:26 WBC 9.1 RBC 3.31 L Hgb 10.3 L Hct 31.5 L MCV 95.2 MCH 31.1 MCHC 32.7 RDW 15.5 Plt Count 279 MPV 9.6 Immature Gran % (Auto) 2.0 H Neut % (Auto) 76.9 H Lymph % (Auto) 11.8 L [place] % (Auto) 7.8 Eos % (Auto) 1.3 Baso % (Auto) 0.2 Lymph # (Auto) 1.1 L [place] # (Auto) 0.7 Eos # (Auto) 0.1 Baso # (Auto) 0.0 Abs Immat Gran (auto) 0.18 H Absolute Neuts (auto) 7.0 Absolute Nucleated RBC 0.000 Nucleated RBC % (auto) 0.0 Absolute Retic Percent Retic Immature Retic Fraction Retic Hgb Equivalent PT INR Sodium 144 Potassium 3.3 Chloride 107 Carbon Dioxide 25 Anion Gap 15 BUN 25 H Creatinine 0.83 Estim Creat Clear Calc 40.1 Estimated GFR > 60 Random Glucose Fasting Glucose 107 H Calcium 8.8 D Ferritin Total Bilirubin 0.3 AST 42 H ALT 38 H Alkaline Phosphatase 112 Troponin I High Sens B-Natriuretic Peptide Total Protein 6.3 L Albumin 3.1 L Vitamin B12 Folate Hold Red Top Urine Color Urine Appearance Urine pH Ur Specific [place] Urine Protein Urine Glucose (UA) Urine Ketones Urine Blood Urine Nitrite Ur Leukocyte Esterase Urine RBC Urine WBC Ur Squamous Epith Cells Urine Bacteria Hyaline Casts COVID-19 (DAISY) COVID-19 Clin Com Influenza Type A (KISHORE) Influenza Type B (KISHORE) Influenza A & B Note Airway Mallampati Class: II TM Dist: >3cm Neck ROM: Full Loose/Missing/Broken Teeth: No (Several capped teeth intact. Denies broken, loose, missing teeth) Heart: RRR + systolic murmur Lungs: CTAB Assessment and Plan Assessment Anesthesia Assessment: Anesthesia Plan Discussed and Chart Reviewed Final Anesthetic Review Family History of Problems with Anesthesia: No History of Problems with Anesthesia: No NPO: Yes ASA Class: III and Emergency Final Preanesthetic Review: No Changes in Pt Med Stat, Meds/Allgs Chart Reviewed, Consent Obtained/Reviewed and Anes Risks/Benef Reviewed Patient Risk: Intermediate Procedure Risk: Low Assessment/Block/Sedation in SS: Assess/Block/Sedation-SS Anesthetic Plan Anesthetic Plan: GA Disposition: Standard PACU and Inp. Admit - Standard Bed
--- NOTE | 2023-12-07 16:00 | MHC.SHP ---
Pre-Procedural Eval Section A - 24 Hr Update-Section A only Date of Service: 12/07/23 The patient is an INPATIENT: No Changes since office visit: No Cold of Flu in the past 2 weeks, No New Medical Problems, No Changes in Medication and No Patient answered all questions The patient has been examined within 24 hours of the surgical procedure. The History & Physical has been completed within 30 days and I have reviewed it.: Yes Section B - Complete if H&P > 30 days Chief Complaint: urinary tract infection Details of Present Illness: pyelonephritis Allergies: Allergies Allergy/AdvReac Type Severity Reaction Status Date / Time No Known Allergies Allergy Verified 12/04/23 13:04 Review of Systems Sugical H&P ROS: Negative: Constitution, Cardiovascular, Respiratory, Neurological, Psychiatric, Hem-Onc, Allergic/Immunologic, Gastrointestinal, Genitourinary, Musculoskeletal, Integumentary, Endocrine and Eyes/Ears/Nose/Throat Exam Surgical H&P Exam: Normal: HEENT, Normal: Heart, Normal: Lungs, Normal: Extremities, Normal: Abdomen, Normal: Skin and Normal: Neurological Plan Diagnosis/Plan: Unchanged (cystoscopy, left retrograde and stent placement) I have reviewed the history and physical and performed a pertinent physical examination on my patient. No changes have occurred unless specified. Time Spent With Patient Time: Total time managing care of this patient today ____ minutes.
--- NOTE | 2023-12-07 16:33 | W.PM.OPN ---
Operative Note Operative Note Date of Service: 12/07/23 Narrative: PreOperative Diagnosis: Left hydronephrosis with pyelonephritis Post Operative Diagnosis: Above Procedure: Cystoscopy, left retrograde, left stent placement Surgeon: Dr Julio Cesar Vines Anesthesia: Sedation Indications for procedure: Left hydronephrosis pyelonephritis Procedure: After informed consent was verified the patient was brought to the operating room and placed in a supine position. Anesthesia was administered per protocol. The patient was placed in modified dorsal lithotomy position and prepped and draped in a sterile fashion. A safety pause time-out was performed. Laterality of procedure and antibiotics were confirmed, appropriate imaging was available A 22 Citizen [place] cystoscope was introduced per urethra. No abnormality was noted of urethra or bladder. Both ureteric orifices were seen in a normal position. The left ureter was cannulated with an open ended catheter and a retrograde examination was performed. Moderate hydronephrosis seen . A Sensor guidewire was placed under fluoroscopy and a good coil was seen within the renal pelvis. Aspiration of renal pelvis performed with open-ended catheter. Will be sent for culture. A 6 [place] by 22 cm double J stent was advanced over the wire and up to the level of the renal pelvis under fluoroscopic and direct visualization. The stent was seen with appropriate coil within the renal pelvis and in the bladder after deployment. The patient tolerated the procedure well and was transferred in a stable condition to the recovery area. Pathology: Renal aspiration Drains: Stent as described
[2023-12-07] MEDS: Phenazopyridine HCL 100 MG TABLET PO (17:26)
[2023-12-07 17:38] LABS: Transferrin 129 mg/dL (188-341)
[2023-12-07] MEDS: cefTRIAXone sodium 1 GM in 0.9 % Sodium Chloride 50 ML IV (18:05)
[2023-12-07] MEDS: Lactated Ringers 1,000 ML 100 ML IVCONT (18:05)
[2023-12-08] VITALS (7 sets, daily range): BP systolic 140–168; BP diastolic 62–71; PULSE 47–85; RESP 16–18; TEMP 36.4–37; O2SAT 93–100
[2023-12-08] MEDS: Lactated Ringers 1,000 ML 100 ML IVCONT (04:01)
[2023-12-08 05:19] LABS: MANUAL DIFF FLAG NO
[2023-12-08 05:21] LABS: Basophils Percent Auto 0.1 % (0-2); Hematocrit 30.2 % (37.0-47.0); Imm Gran Abs Auto 0.17 X10*3/uL (0.00-0.03); Imm Gran Pct Auto 2.2 % (0.0-0.4); Lymphocytes Absolute Auto 0.5 X10*3/uL (1.2-4.9); Lymphocytes Percent Auto 6.7 % (20-40); Mean Corpuscular HGB Conc 33.1 g/dl (31.0-35.0); Mean Corpuscular Hemoglobin 32.1 pg (27.0-33.0); Mean Corpuscular Volume 96.8 fL (80.0-98.0); Mean Platelet Volume 9.9 fL (9.4-12.3); Monocytes Absolute Auto 0.2 X10*3/uL (0.1-1.2); Neutrophils Absolute Auto 6.8 x10*3/uL (2.0-8.3); Platelet Count 269 X10*3/uL (160-400); Red Blood Count 3.12 X10*6/uL (4.20-5.50); Red Cell Distribution Width 15.9 % (11.0-16.0); White Blood Count 7.6 X10*3/uL (4.8-10.8)
[2023-12-08 05:37] LABS: Alanine Aminotransferase 32 U/L (0-31); Alkaline Phosphatase 97 U/L (39-117); Anion Gap 13 (12-20); Aspartate Amino Transferase 36 U/L (5-31); Bilirubin Total 0.3 mg/dL (0.0-1.0); Blood Urea Nitrogen 24 mg/dL (9-16); Carbon Dioxide 27 mmol/L (22-29); Chloride 108 mmol/L (96-108); Creatinine Clr Calc Pharmacy 40.1; Estimated Glomerular Filt Rate > 60; Glucose Fasting 131 mg/dL (60-99); Potassium 3.9 mmol/L (3.3-5.1); Sodium 144 mmol/L (135-145); Total Protein 6.1 g/dL (6.5-8.0)
[2023-12-08] MEDS: Albuterol/Iprat 2.5/0.5MG 3 ML AMPUL.NEB INHALE ×3 (07:38→15:29)
[2023-12-08] MEDS: bisacodyL 5 MG TABLET.DR 10 MG PO (08:18)
[2023-12-08] MEDS: Multivitamin TABLET 1 TAB PO (08:18)
[2023-12-08] MEDS: Doxazosin Mesylate 2 MG TABLET 4 MG PO (08:19)
[2023-12-08] MEDS: Ezetimibe 10 MG TABLET PO (08:19)
[2023-12-08] MEDS: Ascorbic Acid 500 MG TABLET PO (08:19)
[2023-12-08] MEDS: Aspirin 81 MG TAB.CHEW PO (08:19)
[2023-12-08] MEDS: Atorvastatin Calcium 80 MG TABLET PO (08:19)
[2023-12-08] MEDS: hydroCHLOROthiazide 12.5 MG TABLET PO (08:19)
[2023-12-08] MEDS: Metoprolol Tartrate 25 MG TABLET PO ×2 (08:19→20:06)
--- NOTE | 2023-12-08 08:45 | HO.POSTANES ---
Post Anesthesia Evaluation Post Anesthesia Evaluation Date of Service: 12/08/23 Vital Signs: Vital Signs Temp Pulse Resp BP Pulse Ox O2 Del Method 12/08/23 07:45 98.5 F 47 L 18 168/62 H 100 Room Air 12/08/23 07:40 47 L 18 12/08/23 03:48 97.5 F 51 17 164/62 H 95 Room Air 12/07/23 22:00 97.3 F 65 16 148/77 H 94 Room Air Anesthesia: General Mental Status: Awake Pain Control: Satisfactory Nausea/Vomiting: None Hydration: Adequate Anesthesia-Related Issues: No Anes. Related Issues
--- NOTE | 2023-12-08 12:06 | P.PNIM_ITS ---
Subjective Subjective Date of Service: 12/08/23 Interval History: Doing well overall. Tolerated procedure without issue Review of Systems Denies chest pain Denies shortness of breath Denies nausea vomiting diarrhea Denies fever chills Physical Exam 2 Vital Signs: Vital Signs: Last Vital Signs Temp 98.5 F 12/08/23 07:45 Pulse 66 12/08/23 11:15 Resp 18 12/08/23 11:15 BP 168/62 H 12/08/23 07:45 Pulse Ox 100 12/08/23 07:45 O2 Del Method Room Air 12/08/23 07:45 BMI result Body Mass Index 28.3 Const: Other: Awake alert no acute distress Resp: Other: Clear to auscultation bilaterally no rales rhonchi wheezes Cardio: Other: No S4; positive S1-S2; no S3 murmurs rubs or gallops GI: Other: Soft nontender nondistended normoactive bowel sounds Extrem: Other: No edema bilaterally Objective Data Active Medications Acetaminophen (Acetaminophen 325 Mg Tablet) 975 mg PO Q6H PRN PRN Reason: Headache Last Admin: 12/05/23 17:04 Dose: 975 mg Documented By: DONTE Albuterol Sulfate (Albuterol Sulfate (0.083%) 2.5 Mg/3 Ml Vial.Neb) 2.5 mg INHALE ONCE PRN PRN Reason: Wheezing Albuterol/Ipratropium (Albuterol/Iprat 2.5/0.5mg 3 Ml Ampul.Neb) 3 ml INHALE RQ4H WHILE AWAKE [facility] Last Admin: 12/08/23 11:08 Dose: 3 ml Documented By: THA Ascorbic Acid (Ascorbic Acid 500 Mg Tablet) 500 mg PO DAILY [facility] Last Admin: 12/08/23 08:19 Dose: 500 mg Documented By: BETY Aspirin (Aspirin 81 Mg Tab.Chew) 81 mg PO DAILY [facility] Last Admin: 12/08/23 08:19 Dose: 81 mg Documented By: BETY Atorvastatin Calcium (Atorvastatin Calcium 80 Mg Tablet) 80 mg PO DAILY [facility] Last Admin: 12/08/23 08:19 Dose: 80 mg Documented By: BETY Bisacodyl (Bisacodyl 5 Mg Tablet.Dr) 10 mg PO DAILY [facility] Last Admin: 12/08/23 08:18 Dose: 10 mg Documented By: BETY Calcium Carbonate (Calcium Carbonate 500 Mg Tablet) 500 mg PO DAILY [facility] Last Admin: 12/08/23 08:18 Dose: 500 mg Documented By: BETY Doxazosin Mesylate (Doxazosin Mesylate 2 Mg Tablet) 4 mg PO DAILY [facility]; Protocol Last Admin: 12/08/23 08:19 Dose: 4 mg Documented By: BETY Ezetimibe (Ezetimibe 10 Mg Tablet) 10 mg PO DAILY [facility] Last Admin: 12/08/23 08:19 Dose: 10 mg Documented By: BETY Fentanyl (Fentanyl Citrate/Pf 100 Mcg/2 Ml Vial) 25 mcg IVPUSH Q5M PRN; Protocol PRN Reason: Pain, Moderate(Pain Scale 4-6) Hydrochlorothiazide (Hydrochlorothiazide 12.5 Mg Tablet) 12.5 mg PO DAILY [facility]; Protocol Last Admin: 12/08/23 08:19 Dose: 12.5 mg Documented By: BETY Ceftriaxone Sodium 1 gm/ (Sodium Chloride) 50 mls @ 100 mls/hr IV Q24H [facility] Last Infusion: 12/07/23 18:35 Dose: Infused Documented By: BETY Lactated Ringer's (Lr) 1,000 mls @ 100 mls/hr IVCONT .Q10H [facility] Last Admin: 12/08/23 04:01 Dose: 100 mls/hr Documented By: ANIBAL Magnesium Hydroxide (Milk Of Magnesia 30 Ml Oral.Susp) 30 ml PO BEDTIME PRN PRN Reason: Constipation Melatonin (Melatonin 3 Mg Tablet) 6 mg PO BEDTIME PRN PRN Reason: Insomnia Metoprolol Tartrate (Metoprolol Tartrate 25 Mg Tablet) 25 mg PO BID [facility]; Protocol Last Admin: 12/08/23 08:19 Dose: 25 mg Documented By: BETY Multivitamins/Vitamin C (Multivitamin Tablet) 1 tab PO DAILY [facility] Last Admin: 12/08/23 08:18 Dose: 1 tab Documented By: BETY Ondansetron HCl (Ondansetron Hcl 4 Mg/2 Ml Vial) 4 mg IVPUSH ONCE PRN PRN Reason: Nausea and Vomiting Sodium Chloride (0.9 % Sodium Chloride Flush 3 Ml Syringe) 3 ml IVFLUSH QSHIFT [facility] Last Admin: 12/08/23 08:11 Dose: Not Given Documented By: BETY Non-Admin Reason: IV Running Labs 12/08/23 05:09 12/08/23 05:09 Labs: Laboratory Results - last 24 hr 12/05/23 12/08/23 05:54 05:09 MCV 96.8 MCH 32.1 MCHC 33.1 RDW 15.9 Plt Count 269 MPV 9.9 Immature Gran % (Auto) 2.2 H Neut % (Auto) 89.0 H Lymph % (Auto) 6.7 L [place] % (Auto) 2.0 Eos % (Auto) 0.0 Baso % (Auto) 0.1 Lymph # (Auto) 0.5 L [place] # (Auto) 0.2 Eos # (Auto) 0.0 Baso # (Auto) 0.0 Abs Immat Gran (auto) 0.17 H Absolute Neuts (auto) 6.8 Absolute Nucleated RBC 0.000 Nucleated RBC % (auto) 0.0 Anion Gap 13 Estim Creat Clear Calc 40.1 Estimated GFR > 60 Fasting Glucose 131 H Calcium 9.0 Transferrin 129 L Total Bilirubin 0.3 AST 36 H ALT 32 H Alkaline Phosphatase 97 Total Protein 6.1 L Albumin 3.0 L Assessment and Plan (1) Hydronephrosis: Status: Acute Plan 83 year old woman with pertinent history of COPD not on home oxygen, essential hypertension, mixed hyperlipidemia who presents to the emergency department for generalized weakness and will be admitted for treatment of acute UTI; 1.Acute UTI(EColi ss CTX) -imaging with possible left-sided hydronephrosis and renal abscess -ceftriaxone(4) -switch to Ceftin on discharge 2.COPD -not a factor this admission -continue outpatient therapies 3.Essential hypertension -acceptable control on current therapies -adjust as indicated SCDs. Full. Patient requires ongoing hospitalization for IV antibiotics to treat UTI pending decision for stent placement Quality Stroke Does the patient have a stroke diagnosis?: No VTE Prior VTE?: No VTE Risk Level:: Medical - moderate - high VTE Device Contraindication: Treatment Not Indicated VTE Drug Contraindication: N/A - Med Ordered
[2023-12-08] MEDS: 0.9 % Sodium Chloride Flush 3 ML SYRINGE IVFLUSH (16:41)
[2023-12-08] MEDS: cefTRIAXone sodium 1 GM in 0.9 % Sodium Chloride 50 ML IV (16:41)
--- NOTE | 2023-12-08 18:11 | PC.NURSE ---
Patient's IV infiltrated during evening ABX administration. Patient requesting to not place additional IV. MD notifed, no access at this time.
[2023-12-09 05:55] VITALS: BP 182/74; PULSE 82; RESP 17; TEMP 36.8; O2SAT 94
[2023-12-09 06:28] LABS: MANUAL DIFF FLAG NO
[2023-12-09 06:57] LABS: Basophils Percent Auto 0.3 % (0-2); Eosinophils Absolute Auto 0.1 X10*3/uL (0.0-0.4); Eosinophils Percent Auto 1.3 % (0-4); Hematocrit 31.3 % (37.0-47.0); Hemoglobin 10.2 g/dl (12.0-16.0); Imm Gran Abs Auto 0.37 X10*3/uL (0.00-0.03); Imm Gran Pct Auto 3.4 % (0.0-0.4); Lymphocytes Absolute Auto 1.3 X10*3/uL (1.2-4.9); Lymphocytes Percent Auto 12.5 % (20-40); Mean Corpuscular HGB Conc 32.6 g/dl (31.0-35.0); Mean Corpuscular Hemoglobin 31.3 pg (27.0-33.0); Mean Platelet Volume 9.6 fL (9.4-12.3); Monocytes Absolute Auto 0.8 X10*3/uL (0.1-1.2); Monocytes Percent Auto 7.3 % (2-11); Neutrophils Absolute Auto 8.1 x10*3/uL (2.0-8.3); Neutrophils Percent Auto 75.2 % (45-73); Platelet Count 329 X10*3/uL (160-400); Red Blood Count 3.26 X10*6/uL (4.20-5.50); Red Cell Distribution Width 15.7 % (11.0-16.0); White Blood Count 10.7 X10*3/uL (4.8-10.8)
[2023-12-09 06:58] LABS: Alanine Aminotransferase 31 U/L (0-31); Albumin Level 2.9 g/dL (3.5-5.0); Alkaline Phosphatase 95 U/L (39-117); Anion Gap 12 (12-20); Aspartate Amino Transferase 35 U/L (5-31); Bilirubin Total 0.4 mg/dL (0.0-1.0); Blood Urea Nitrogen 27 mg/dL (9-16); Calcium 8.9 mg/dL (8.4-10.2); Carbon Dioxide 30 mmol/L (22-29); Chloride 105 mmol/L (96-108); Creatinine Clr Calc Pharmacy 41.1; Estimated Glomerular Filt Rate > 60; Glucose Fasting 101 mg/dL (60-99); Potassium 3.4 mmol/L (3.3-5.1); Sodium 144 mmol/L (135-145); Total Protein 5.9 g/dL (6.5-8.0)
[2023-12-09 07:42] VITALS: BP 178/70; PULSE 68; RESP 18; TEMP 37.1; O2SAT 92
[2023-12-09] MEDS: Albuterol/Iprat 2.5/0.5MG 3 ML AMPUL.NEB INHALE ×2 (07:48→11:28)
[2023-12-09 07:50] VITALS: PULSE 70; RESP 18; O2SAT 98
[2023-12-09] MEDS: hydroCHLOROthiazide 12.5 MG TABLET PO (08:29)
[2023-12-09] MEDS: Doxazosin Mesylate 2 MG TABLET 4 MG PO (08:30)
[2023-12-09] MEDS: Atorvastatin Calcium 80 MG TABLET PO (08:30)
[2023-12-09] MEDS: Metoprolol Tartrate 25 MG TABLET PO (08:30)
[2023-12-09] MEDS: bisacodyL 5 MG TABLET.DR 10 MG PO (08:30)
[2023-12-09] MEDS: Ezetimibe 10 MG TABLET PO (08:30)
[2023-12-09] MEDS: Multivitamin TABLET 1 TAB PO (08:30)
[2023-12-09] MEDS: Aspirin 81 MG TAB.CHEW PO (08:30)
[2023-12-09] MEDS: Ascorbic Acid 500 MG TABLET PO (08:30)
[2023-12-09] MEDS: 0.9 % Sodium Chloride Flush 3 ML SYRINGE IVFLUSH (08:30)
[2023-12-09 11:30] VITALS: PULSE 70; RESP 18; O2SAT 98
--- NOTE | 2023-12-09 11:36 | P.DS_ITS ---
DS: Providers Provider Date of Service: 12/09/23 Date of admission: 12/04/23 21:46 Date of discharge: 12/09/23 Primary care physician: Lukas Pressley MD Consults: 12/04/23 22:33 Consult to Urology Routine Consulting Provider: Dom Gan Reason for consultation: UTI, hydronephrosis, ?renal abscess Has provider been notified: Yes DS: Diagnosis Discharge Diagnosis (1) Hydronephrosis: Status: Acute DS: Summary Hospital Course Hospital Course: 83 years old woman with past medical history significant for hypertension, hyperlipidemia and mild COPD -not home oxygen or daily steroids use presents to the emergency department complaining of generalized weakness and decreased appetite since Thursday. Patient also has history of several UTIs in the last year and a half requiring p.o. antibiotic courses. She was complaining of a generalized abdominal discomfort. She did not report nausea, vomiting or chills. Her temperature was elevated at home. She does have chronic cough and headache. She did not report chest pain. HPI and medical history was provided mostly by patient's son who is a physician. Son was concerned for urinary tract infection. In the ED, she was initially found with slight tachycardia. There is no fever or hypotension. Her oxygen saturation is normal on room air. Blood workup showed no leukocytosis. Creatinine is 1.38 and BUN 51. Troponin x2 is elevated but decreasing. Urinalysis consistent with urinary tract infection. Viral testing for COVID-19 and influenza is negative. CXR is negative. Abdominal pelvis CT scan with IV contrast showed left renal hydronephrosis of uncertain etiology. There is a concern for possible infection/developing renal abscess. It also showed diverticulosis without diverticulitis and 6 mL of stool in the colon suggesting constipation. Hospital Course Patient admitted to the general medical floor and started on ceftriaxone. She was seen in consultation by Urology who agreed with conservative treatment with ceftriaxone and follow clinically. Despite therapy with ceftriaxone her leukocytosis persisted and the decision for stent placement was made. On 12/07/2023 she underwent cystoscopy, left retrograde, left stent placement without issue. 24 hours postop her white count remains flat and she is without acute complaints. At this time she is medically acceptable to be discharged to complete an oral course of ceftriaxone for UTI that plated out E coli sensitive to ceftriaxone. She will follow up with Renal and her PCP as outpatient Time Attestation Discharge coordination time: Greater than 30 minutes Quality: Safe Use of Opioids Does Pt have an Active Cancer Diagnosis on the Problem List?: No Quality: Stroke Does the patient have a stroke diagnosis?: No Physical Exam Vital Signs: Vital Signs: Last Vital Signs Temp 98.8 F 12/09/23 07:42 Pulse 70 12/09/23 11:30 Resp 18 12/09/23 11:30 BP 178/70 H 12/09/23 07:42 Pulse Ox 92 12/09/23 07:42 O2 Del Method Room Air 12/09/23 07:42 BMI result Body Mass Index 28.3 Const: Other: Awake alert no acute distress Resp: Other: Clear to auscultation bilaterally no rales rhonchi wheezes Cardio: Other: No S4; positive S1-S2; no S3 murmurs rubs or gallops GI: Other: Soft nontender nondistended normoactive bowel sounds Extrem: Other: No edema bilaterally DS: Data Data Completed and Pending Labs on day of discharge: Laboratory Results - last 24 hr 12/09/23 06:18 WBC 10.7 RBC 3.26 L Hgb 10.2 L Hct 31.3 L MCV 96.0 MCH 31.3 MCHC 32.6 RDW 15.7 Plt Count 329 MPV 9.6 Immature Gran % (Auto) 3.4 H Neut % (Auto) 75.2 H Lymph % (Auto) 12.5 L [place] % (Auto) 7.3 Eos % (Auto) 1.3 Baso % (Auto) 0.3 Lymph # (Auto) 1.3 [place] # (Auto) 0.8 Eos # (Auto) 0.1 Baso # (Auto) 0.0 Abs Immat Gran (auto) 0.37 H Absolute Neuts (auto) 8.1 Absolute Nucleated RBC 0.000 Nucleated RBC % (auto) 0.0 Sodium 144 Potassium 3.4 Chloride 105 Carbon Dioxide 30 H Anion Gap 12 BUN 27 H Creatinine 0.81 Estim Creat Clear Calc 41.1 Estimated GFR > 60 Fasting Glucose 101 H Calcium 8.9 Total Bilirubin 0.4 AST 35 H ALT 31 Alkaline Phosphatase 95 Total Protein 5.9 L Albumin 2.9 L Discharge Plan Discharge Anticipated Discharge Date/Time: 12/09/23 11:27 Patient Disposition: Home Health Service Discharge Diagnosis: Urinary tract infection Referrals: Lukas Pressley MD [Primary Care Provider] - 1 Week Discharge Medications: New cefuroxime axetil 250 mg tablet 250 mg PO BID 7 Days Qty: 14 0RF Continued irbesartan 300 mg Tablet 300 mg PO DAILY ezetimibe 10 mg Tablet 10 mg PO DAILY metoprolol tartrate 25 mg Tablet 25 mg PO BID atorvastatin 80 mg Tablet 80 mg PO DAILY doxazosin 4 mg Tablet 4 mg PO DAILY hydrochlorothiazide 12.5 mg Tablet 12.5 mg PO DAILY multivitamin Tablet 1 tab PO DAILY calcium 600 mg Capsule 600 mg PO DAILY ascorbic acid (vitamin C) [Vitamin C] 500 mg Tablet 500 mg PO DAILY aspirin 81 mg Tablet,Chewable 81 mg PO DAILY Discharge Orders: Discharge Order (Routine); Ordered 12/09/23 Ordered By: Mumtaz Celestin Diet: Advance to usual diet Activity on Discharge: As tolerated Stand Alone Forms: Patient Portal Discharge page Care Plan Goals: Resume all medicines as taken prior to the hospital Health Concerns: Complete course of Ceftin as ordered Plan of Treatment: Follow-up with PCP next available Assessment: See discharge summary
--- NOTE | 2023-12-09 11:58 | W.MHC.F2F ---
Service Date Service Date: 12/09/23 Encounter Date of encounter: 12/09/23 Encounter: Acute hospitalization Reasons for Services Signs and symptoms assessed: Fluid status and volume along with monitoring lung sounds Reason for senior living: medication management and teach disease management Homebound: Leaving the home is medically contraindicated at this time without the asist of a device and/or another person due th the listed conditions above and below. Reason homebound: unsteady gait / fall risk and unable to drive Certification: Based on the above findings, I certify that this patient is confined to the home and needs intermittent senior living care, physical therapy and/or speech therapy, or continues to need occupational therapy. The patient is under my care, and I have initiated the establishment of the plan of care. The patient will be followed by a physician who will periodically review the plan of care. Time Spent With Patient Time: Total time managing care of this patient today ____ minutes.
--- NOTE | 2023-12-09 13:00 | MHC.CM.PN ---
IMM 12/06/23 Female discharged today to home with [facility]. Patient dtr provided transportation home.
[2023-12-09 16:23] LABS: VITAMIN D (1,25 OH) D3 37 pg/mL; Vit D (1,25-Dihydroxy) Total 37 pg/mL (18-72); Vitamin D (1,25 OH) D2 <8 pg/mL
== END 2023-12-09 12:20 | disposition home health service (06) | DRG 661 ==
LOC: HO.ED 21:19 → HO.EDOVER 21:51 → HO.S3 12-05 10:30
PROVIDERS: Physician Assistant Medical; Registered Nurse Emergency; Student in an Organized Health Care Education/Training Program; Urology; Admitting Provider Internal Medicine; Emergency Provider Emergency Medicine; PCP Internal Medicine; Visit Provider Hospitalist
PROC: 0T778DZ Dilation of Left Ureter with Intraluminal Device, Via Natural or Artificial Opening Endoscopic (ICD-10-PCS; principal; 2023-12-07 15:20)
DX: N13.6 Pyonephrosis (principal); K59.00 Constipation, unspecified; I10 Essential (primary) hypertension; B96.20 Unspecified Escherichia coli [E. coli] as the cause of diseases classified elsewhere; J44.9 Chronic obstructive pulmonary disease, unspecified; D64.9 Anemia, unspecified; E78.2 Mixed hyperlipidemia; N28.1 Cyst of kidney, acquired; Z20.822 Contact with and (suspected) exposure to COVID-19; Z87.440 Personal history of urinary (tract) infections; Z87.891 Personal history of nicotine dependence; Z79.82 Long term (current) use of aspirin; Z79.899 Other long term (current) drug therapy
CPT/HCPCS: 36415; 71046; 74177; 80048; 80053; 81001; 82607; 82652; 82728; 82746; 83880; 84466; 84484; 85025; 85027; 85045; 85610; 87086; 87088; 87186; 87502; 87635; 93005; 94640; 94664; 99285; C1758; C1769; C2617; J0131; J0360; J0690; J0696; J1100; J1885; J2405; J2704; J3010; J7120; Q9967

== ENCOUNTER → 2023-12-04 14:17 | Outpatient (BNV) | payer MEDICARE, BC, SELFPAY | PROVIDERS: Emergency Provider Emergency Medicine; PCP Internal Medicine; Visit Provider Internal Medicine Cardiovascular Disease | DX: R94.31 Abnormal electrocardiogram [ECG] [EKG] (principal) | CPT/HCPCS: 93010 ==

== ENCOUNTER → 2023-12-04 21:46 | Outpatient (BNV) | payer MEDICARE, BC, SELFPAY | PROVIDERS: Admitting Provider Internal Medicine; Emergency Provider Emergency Medicine; PCP Internal Medicine; Visit Provider Urology | DX: N28.1 Cyst of kidney, acquired (principal); N13.6 Pyonephrosis; N30.00 Acute cystitis without hematuria | CPT/HCPCS: 52332; 74420; 99222; 99232 ==

== ENCOUNTER → 2023-12-04 21:46 | Outpatient (BNV) | payer MEDICARE, BC, SELFPAY | PROVIDERS: Admitting Provider Internal Medicine; Emergency Provider Emergency Medicine; PCP Internal Medicine; Visit Provider Internal Medicine | DX: N30.00 Acute cystitis without hematuria (principal); J44.9 Chronic obstructive pulmonary disease, unspecified | CPT/HCPCS: 99222; 99231; 99232; 99239; G0180 ==

== ENCOUNTER 2023-12-13 13:58 | Emergency (ER) | payer MEDICARE, BC, SELFPAY ==
--- NOTE | ~2023-12-13 | XR_ITS ---
EXAMINATION: XR FOREARM, RIGHT CLINICAL INFORMATION: Pain. Rule out fracture. COMPARISON: None available. TECHNIQUE: AP and lateral views of the right forearm were obtained. FINDINGS: The bones and soft tissues are normal. No fracture. Imaged portions of the elbow and wrist are unremarkable. XR/XR forearm RT 2V IMPRESSION: Normal right forearm.
--- NOTE | ~2023-12-13 | US_ITS ---
EXAMINATION: US VENOUS WITH DOPPLER UPPER EXTREMITY, RIGHT CLINICAL INFORMATION: Right arm pain COMPARISON: None available. TECHNIQUE: Ultrasound of the upper extremity is performed using compression sonography and color and pulse Doppler flow with assessment of augmentation of flow. There is also imaging and Doppler assessment of the jugular and subclavian veins. Spectral analysis with color-flow imaging is performed. The evaluation is somewhat technically difficult as some of the vessels appeared diminutive. FINDINGS: Respiratory variation, normal compression, and augmented flow are noted throughout the upper extremity including the axillary, brachial, cubital, and radial and ulnar veins. There is normal flow in the internal jugular and subclavian veins. There is no visible deep or superficial thrombophlebitis. If the patient's symptoms progress, a followup ultrasound in 5 -7 days might be of value to exclude proximal propagation from a nonvisualized distal arm vein. A 3.9 x 0.7 x 2.2 cm avascular minimally complex fluid collection is noted in the anterior shoulder. This fluid collection appears along the tendinous structure. Probable small joint effusion at the elbow. US/US venous duplex UE RT IMPRESSION: No convincing sonographic evidence of deep venous thrombosis in the right upper extremity. A 3.9 cm fluid collection in the anterior right shoulder, may represent peritendinous fluid collection versus joint effusion versus bursal fluid collection. Question small elbow joint effusion.
--- NOTE | ~2023-12-13 | XR_ITS ---
EXAMINATION: XR HUMERUS, RIGHT CLINICAL INFORMATION: Pain. Rule out fracture. COMPARISON: None available. TECHNIQUE: AP and lateral views of the right humerus. FINDINGS: Bone alignment is normal. No fracture or dislocation. Normal glenohumeral joint. 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 Soft tissue calcifications superior to the acromioclavicular joint and humeral greater tuberosity. Elbow joint unremarkable. XR/XR humerus RT IMPRESSION: No fracture or dislocation. 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
[2023-12-13 14:06] VITALS: BP 165/61; PULSE 65; RESP 17; TEMP 36.8; O2SAT 94; BMI 29.3
--- NOTE | 2023-12-13 14:15 | ECG_ITS ---
Test Reason : RT ARM PAIN Blood Pressure : / mmHG Vent. Rate : 075 BPM Atrial Rate : 075 BPM P-R Int : 128 ms QRS Dur : 144 ms QT Int : 412 ms P-R-T Axes : 047 017 170 degrees QTc Int : 460 ms Normal sinus rhythm Left bundle branch block Abnormal ECG When compared with ECG of 04-DEC-2023 14:36, No significant change was found Referred By: Generic ED Physician Electronically Signed By:AUDREY CARR
--- NOTE | 2023-12-13 14:26 | ED.GENADULT ---
HPI - General Adult General Chief complaint: General Medical Stated complaint: Severe pain right arm Time Seen by Provider: 12/13/23 16:37 Source: patient and family (son) Mode of arrival: ambulatory Limitations: no limitations History of Present Illness HPI narrative: 83 yold with pmh of pyelonephriits, high cholesterol, and HTN presents to the ED for right arm pain since during admission for stent placement for pylenophritis. Patient and daughter states patient was stuck mutliple times in right arm which caused brusing. Daughter and patient states bruising improved and denies any swelling, redness, new trauma, coldness, hotness, fever, chills, or new ecchymosis. Related Data Home Medications Medication Instructions Recorded Confirmed ascorbic acid (vitamin C) 500 mg 500 mg PO DAILY 12/04/23 12/15/23 tablet (Vitamin C) aspirin 81 mg chewable tablet 81 mg PO DAILY 12/04/23 12/15/23 atorvastatin 80 mg tablet 80 mg PO DAILY 12/04/23 12/15/23 calcium 600 mg capsule 600 mg PO DAILY 12/04/23 12/15/23 doxazosin 4 mg tablet 4 mg PO DAILY 12/04/23 12/15/23 ezetimibe 10 mg tablet 10 mg PO DAILY 12/04/23 12/15/23 hydrochlorothiazide 12.5 mg tablet 12.5 mg PO DAILY 12/04/23 12/15/23 irbesartan 300 mg tablet 300 mg PO DAILY 12/04/23 12/15/23 metoprolol tartrate 25 mg tablet 25 mg PO BID 12/04/23 12/15/23 multivitamin 1 tab PO DAILY 12/04/23 12/15/23 Previous Rx's Medication Instructions Recorded fesoterodine 4 mg tablet,extended 4 mg PO DAILY 30 days #30 tabs 12/10/23 release 24 hr (Toviaz) phenazopyridine 100 mg tablet 100 mg PO TID PRN pain 5 days #15 12/10/23 (Pyridium) tabs naproxen 500 mg tablet 500 mg PO BID PRN pain 7 days #14 12/13/23 tabs cefuroxime axetil 250 mg tablet 250 mg PO BID 7 days #14 tabs 12/15/23 methenamine hippurate 1 gram tablet 1 g PO daily 90 days #90 tabs 12/15/23 Allergies Allergy/AdvReac Type Severity Reaction Status Date / Time No Known Allergies Allergy Verified 12/04/23 13:04 Review of Systems Review of Systems: Right arm pain Yes all other systems are reviewed and are negative [facility] Past Medical History Medical History Constipation History of recurrent UTIs Left leg DVT Rupture of left gastrocnemius muscle Leg edema, left COPD (chronic obstructive pulmonary disease) Hyperlipidemia Essential hypertension Surgical History History of left hip replacement History of operative procedure on lumbosacral spinal structure S/P IVC filter History of cataract surgery H/O: hysterectomy Social History Social History Household Members: Spouse Housing: Apartment Housing Other:: indep living Do you presently have visiting nurse or other home services: No Alcohol intake: never Patient Tobacco Use Status: Former Tobacco user Advance Directives Date on File: 12/05/23 service: No Physical Exam ED Vital Signs: Vital Signs - 24 hr 12/13/23 14:06 Temperature 98.2 F Pulse Rate 65 Respiratory Rate 17 Blood Pressure 165/61 H Pulse Oximetry 94 Oxygen Delivery Method Room Air BMI result Body Mass Index 29.3 Const General: cooperative, healthy appearing, comfortable, no acute distress, well developed, alert and awake Orientation/consciousness: oriented to person, oriented to place, oriented to time and patient oriented x3 HENMT Head: Yes normal to inspection, Yes No palpable skull fracture present, Yes normocephalic, Yes atraumatic and No abrasion Eyes General: appearance normal, both eyes and all related structures Neck Neck: Yes normal visual inspection, Yes full ROM, Yes no lymphadenopathy, Yes no meningeal signs, Yes trachea midline, Yes supple, No anterior neck swelling and No tender Chest Chest palpation & inspection: normal inspection of the chest and normal palpation of entire chest wall Resp Effort & Inspection: normal respiratory effort and able to speak in complete sentences Auscultation: clear to auscultation bilaterally Cardio Jugular venous distension: no JVD Heart sounds: S1 normal heart sound present and S2 normal heart sound present GI Inspection: Yes normal to inspection Palpation (GI): Soft to palpation, not firm, nontender, no guarding and not rigid General: Yes no CVA tenderness Back/Spine/Pelvis Back: no CVA tenderness and No back tenderness Skin General skin exam: no rashes or lesions noted, elasticity normal and turgor normal Neuro General: oriented to person, oriented to place, oriented to time, patient oriented x3, gait normal, tone normal, moves all extremities, Normal light touch and pain sensation, no meningeal signs and no focal motor deficits Extrem General: Yes normal to inspection and Yes full ROM Elbow/forearm/wrist images: 1. tenderness on palpation. negative for ecchymosis, crepitus, redness, deformity, coldness, hotness, pus discharge, foul odor, or weakness. whole extremity motor, neuro, and vascular exam is intact. Psych Appearance: grossly normal, well kempt and not disheveled Course Course Course Narrative: RME: 83 yold female s/p stent placed in kidney and recent discharge presents to the ED for right arm since admission after multiple attempts OF IV on right foremar/anticubital. Patient states ecchymosis and swelling has resolved. Patient sent for ultrasound and xray Medical Decision Making Medical Decision Making MDM Narrative: 83 yolfdld female with RIght arm pain since during admission for stent placement last week. Patient was a hard stick and had multipe attempts at IV on her right arm. Xrays negative for fractures, dislocation, or osteomylitis. Ultrasound negative for DVT or phlebitis. ULtrasound shows possible burisitis of right shoulder and possible right elbow small joint effusions. Xrays negative for joint effusion. Patient has complete range of motion of extremities and motor, neuro, vascular exam intact. not suspecting hematoma, cellulitis, DVT, compartment syndrome, disclocation, osteomylitis, or arterial occlusion. EKG was ordered by triage nurse and not indicated. EKS shows left bundle branch block. negative for STEMI. SOn is a Radiologist and showed me an OLD EKG from 2006 from patient's portal on his phone which shows that her bundle branch block is old. Differential Diagnosis Differential Diagnoses: The differential diagnosis associated with the presentation includes (CEllutlits, DVT, phelbitis) Admission/Observation Consideration of admission/observation: Escalation of care including admission/observation considered Independent Interpretation I performed an independent interpretation of an: EKG (NEgative STEMI. Left bundle branch block is old. ), Plain X-Ray, Ultrasound and CT Scan Radiology Impression Discussion of test interpretation with radiology: I have reviewed the radiologist's reading. Prescription Management I considered prescription management with: Pain Medication Discharge Plan Discharge Clinical Impression: Arm pain Patient Disposition: Home, Self-Care Instructions: Arm Pain (ED) Additional Instructions: Ultrasound came back negative for DVT or phlebitis. Ultrasound of right upper extremity shows possible right shoulder bursitis and right elbow small joint effusion. Return to the ED for increased swelling, redness, hotness, coldness, bluish black discoloration, chest pain, shortness of breath, worsening pain, fever, chills, weakness, numbness/tingling, or any other concerning symptoms. Please follow-up with primary care provider. Do not take aspirin or any other NSAIDs while taking naproxen. Prescriptions: New naproxen 500 mg tablet 500 mg PO BID PRN (Reason: pain) 7 Days Qty: 14 0RF No Action fesoterodine [Toviaz] 4 mg tablet extended release 24 hr 4 mg PO DAILY 30 Days Qty: 30 0RF phenazopyridine [Pyridium] 100 mg tablet 100 mg PO TID PRN (Reason: pain) 5 Days Qty: 15 0RF irbesartan 300 mg Tablet 300 mg PO DAILY ezetimibe 10 mg Tablet 10 mg PO DAILY metoprolol tartrate 25 mg Tablet 25 mg PO BID atorvastatin 80 mg Tablet 80 mg PO DAILY doxazosin 4 mg Tablet 4 mg PO DAILY hydrochlorothiazide 12.5 mg Tablet 12.5 mg PO DAILY multivitamin Tablet 1 tab PO DAILY calcium 600 mg Capsule 600 mg PO DAILY ascorbic acid (vitamin C) [Vitamin C] 500 mg Tablet 500 mg PO DAILY aspirin 81 mg Tablet,Chewable 81 mg PO DAILY cefuroxime axetil 250 mg tablet 250 mg PO BID 7 Days Qty: 14 0RF methenamine hippurate 1 gram tablet 1 g PO daily 90 Days Qty: 90 1RF Interventions: ED Discharge Assessment Last Done: 12/13/23 18:32 Discharge Date/Time: 12/13/23 18:33 Print Language: Kinyarwanda
== END 2023-12-13 18:33 | disposition home or self-care (01) ==
PROVIDERS: Emergency Provider Internal Medicine; PCP Internal Medicine
DX: M79.601 Pain in right arm (principal); I44.7 Left bundle-branch block, unspecified; R60.0 Localized edema; Z79.899 Other long term (current) drug therapy
CPT/HCPCS: 73060; 73090; 93005; 93971; 99284

== ENCOUNTER → 2023-12-13 14:15 | Outpatient (BNV) | payer MEDICARE, BC, SELFPAY | PROVIDERS: Emergency Provider Internal Medicine; PCP Internal Medicine; Visit Provider Internal Medicine | DX: R94.31 Abnormal electrocardiogram [ECG] [EKG] (principal); I44.7 Left bundle-branch block, unspecified | CPT/HCPCS: 93010 ==

== ENCOUNTER 2023-12-15 10:42 | Outpatient (AMB) | payer MEDICARE, BC, SELFPAY ==
--- NOTE | 2023-12-15 11:00 | MHC.OFFVIS ---
Intake Intake Visit Reasons: cysto stent removal Intake Note: Patient is Present for Cystoscopy Urology Med: Antibiotic Allergy: Blood Thinner: URO- G Disposable Cystoscope lot: [id number] exp:03/20/2025 Allergies No Known Allergies Allergy (Verified 12/04/23 13:04) Medication List - Last Reconciled 12/15/23 by Julio Cesar Vines MD ascorbic acid (vitamin C) (Vitamin C) 500 mg PO DAILY aspirin 81 mg PO DAILY atorvastatin 80 mg PO DAILY calcium 600 mg PO DAILY cefuroxime axetil 250 mg PO BID 7 days doxazosin 4 mg PO DAILY ezetimibe 10 mg PO DAILY fesoterodine ER (Toviaz) 4 mg PO DAILY 30 days hydrochlorothiazide 12.5 mg PO DAILY irbesartan 300 mg PO DAILY metoprolol tartrate 25 mg PO BID multivitamin 1 tab PO DAILY naproxen 500 mg PO BID PRN 7 days phenazopyridine (Pyridium) 100 mg PO TID PRN 5 days HPI HPI Comments History of Present Illness Details Margo is a pleasant female. She is a patient of . She is seen for the following urologic conditions - pyelonephritis Here for stent removal today Reported to have had 3 UTIs within the last 12 months On vitamin-C Recommend addition of methenamine Needs to complete 7 day course of antibiotics. Prescription refilled 4 month follow-up renal imaging Pyelonephritis Hospital admission Cystoscopy with left stent placement 12/02 Here for stent removal [facility] Medical History Constipation History of recurrent UTIs Left leg DVT Rupture of left gastrocnemius muscle Leg edema, left COPD (chronic obstructive pulmonary disease) Hyperlipidemia Essential hypertension Surgical History History of left hip replacement History of operative procedure on lumbosacral spinal structure S/P IVC filter History of cataract surgery H/O: hysterectomy Social History Household Members: Spouse Housing: Apartment Housing Other:: indep living Do you presently have visiting nurse or other home services: No Alcohol intake: never Patient Tobacco Use Status: Former Tobacco user Advance Directives Date on File: 12/05/23 service: No Review of Systems Const Denies chills and Denies fever(s) Card Reports no additional complaints and Denies syncope Resp Denies cough GI Denies abdominal pain and Denies heartburn Reports as per HPI and Denies change in libido Neuro Denies syncope Psych Denies change in libido Endo Denies change in libido Physical Exam Const General: cooperative, healthy appearing, comfortable and no acute distress Orientation/consciousness: patient oriented x3 HEENT Face and sinus: Yes normal facial exam Mouth: moist mucous membranes Neck Neck: Yes normal visual inspection, Yes full ROM and Yes trachea midline Chest Chest palpation & inspection: normal inspection of the chest Resp Effort & Inspection: normal respiratory effort, able to speak in complete sentences and no respiratory distress GI Inspection: Yes normal to inspection Back/Spine/Pelvis Cervical Spine: normal cervical lordosis Thoracic/Lumbar Spine: thoracic and lumbar spine normal to inspection Skin General skin exam: no rashes or lesions noted Neuro General: patient oriented x3, gait normal, tone normal and moves all extremities Extrem General: Yes normal to inspection and Yes capillary refill normal Office Procedures Cystoscopy Consent Discussed risk and benefit or proposed procedure with the patient. Information consent for procedure given to the patient. Discussed technical aspects, risks, benefits and alternatives in full. Addressed all of the patient's questions and concerns regarding the procedure. The patient demonstrated knowledge and understanding. They wish to proceed with this procedure. Preparation The patient was prepped in the usual manner. A operations specialists was present and in the room. Genitalia was prepped with betadine solution in a sterile manner. Lidocaine Jelly 2% was placed into the urethra and 16Fr flexible Olympus cystoscope was inserted into the meatus after adequate lubrication. Procedure A well lubricated 16 Cymro cystoscope was placed No abnormality noted of urethra during placement Indwelling stent seen within bladder emerging from left ureteric orifices The stent was grasped with a 3 prong grasper and removed without difficulty The patient tolerated the procedure well [id number] with stent removal DISPOSABLE SCOPE URO-G FLEXIBLE SCOPE Procedure code (CPT) selection complete Office Meds lidocaine HCl 2 % mucosal jelly in applicator Performing Provider: Julio Cesar Vines MD Performing Location[facility] [place] Administered by: Pedro Earl LPN on 12/15/23 11:17 Dose Route Admin Location Dispensed Lot Number Expiration Date [facility] Cork Tile Floor Layer 10 mL intra-urethral 10 mL nitrofurantoin monohydrate/macrocrystals 100 mg capsule Performing Provider: Julio Cesar Vines MD Performing Location: [facility] [place] Administered by: Pedro Earl LPN on 12/15/23 11:17 Dose Route Admin Location Dispensed Lot Number Expiration Date NDC Cork Tile Floor Layer 100 mg PO 1 cap naproxen 500 mg tablet Performing Provider: Julio Cesar Vines MD Performing Location: [facility] [place] [facility] Documented (not given) by: Pedro Earl LPN on 12/15/23 11:17 Reason Not Given: Patient Refused Assessment & Plan Assessment & Plan (1) Pyelonephritis: Code(s): N12 - Tubulo-interstitial nephritis, not specified as acute or chronic Plan Four month imaging ultrasound Orders: Orders AMB Cystoscopy Today N13.30 - Unspecified hydronephrosis US renal BI 4 Months N12 - Tubulo-interstitial nephritis, not specified as acute or chronic Medications: New methenamine hippurate 1 g PO daily 90 days 90 tabs 1RF N12 - Tubulo-interstitial nephritis, not specified as acute or chronic Refilled cefuroxime axetil 250 mg PO BID 7 days 14 tabs 0RF Patient Instructions: Imaging studies, laboratory and physical exam results were discussed and reviewed in detail. No major barriers to patient understanding were identified. An opportunity to ask questions regarding the treatment plan was provided. All questions were answered. The patient expressed understanding and agreement with the above treatment plan. The patient is aware they should contact our office by phone for worsening of their current condition or the appearance of new urologic symptoms. Compliance is encouraged with any medications and followup testing that is ordered. It is a privilege to participate in the urologic care of your patient. If you have any questions or concerns regarding treatment for the above conditions, or other urologic issues, please do not hesitate to contact me. The office telephone contact is [phone]. This note is constructed using voice recognition software. While every effort has been made to ensure accuracy health promotion educator errors may have been included. Yours sincerely, Dr Julio Cesar Vines MD, [facility] - Urology Providers of Expert, Compassionate Care for the Genitourinary System Coding Level of Care Code Est Pt Level 4 (82837) Diagnoses Pyelonephritis N12 CPT Codes Cystoscopy - CPT: 43980-[id number] with stent removal ([id number])
== END 2023-12-15 12:12 | disposition home or self-care (01) ==
PROVIDERS: PCP Internal Medicine; Visit Provider Urology
DX: N12 Tubulo-interstitial nephritis, not specified as acute or chronic (principal); N13.30 Unspecified hydronephrosis; Z96.0 Presence of urogenital implants
CPT/HCPCS: 52310; 99213

== ENCOUNTER → 2023-12-15 10:42 | Outpatient (BNVA) | payer MEDICARE, BC, SELFPAY | PROVIDERS: PCP Internal Medicine; Visit Provider Urology | DX: N12 Tubulo-interstitial nephritis, not specified as acute or chronic (principal) | CPT/HCPCS: 52310; 99212 ==

== ENCOUNTER 2024-04-05 13:41 | Outpatient (REF) | payer MEDICARE, BC, SELFPAY ==
--- NOTE | ~2024-04-05 | US_ITS ---
EXAMINATION: US RETROPERITONEAL LIMITED (RENAL ONLY) CLINICAL INFORMATION: Tubulointerstitial nephritis, not specified as acute or chronic. COMPARISON: CT abdomen and pelvis 12/04/2023. TECHNIQUE: Real-time imaging of the kidneys. FINDINGS: RIGHT KIDNEY: 9.1 x 5.0 x 5.1 cm (SAG x AP x TRV). The kidney is normal in size, contour, and echogenicity. Renal cortical thickness is normal. No renal calculi or hydronephrosis. Renal cysts at 11 11 mm are seen as was present on the prior CT. A right ureteral jet was not identified. LEFT KIDNEY: 9.8 0.3 x 5.6 cm (SAG x AP x TRV). 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 As was seen on the prior CT of 12/04/2023, several cysts are noted as is mild distention of the renal pelvis. The largest interpolar cyst measuring 51 x 56 mm and 26 x 22 mm. There is a lower pole stone at 7 x 5 mm. A left ureteral jet however was seen. US/US renal BI IMPRESSION: Stable distention of the left collecting system. Bilateral cysts. Left kidney not clearly seen for technical reasons. Overall no substantial change from 12/04/2023. No effusion, I believe best evaluation of the kidneys can be achieved with CT in this patient..
== END 2024-04-05 13:42 | disposition home or self-care (01) ==
LOC: HO.US 13:41
PROVIDERS: PCP Internal Medicine; Visit Provider Urology
DX: N12 Tubulo-interstitial nephritis, not specified as acute or chronic (principal)
CPT/HCPCS: 76775

== ENCOUNTER 2024-04-14 11:27 | Outpatient (AMB) | payer MEDICARE, BC, SELFPAY ==
--- NOTE | 2024-04-14 11:56 | MHC.OFFVIS ---
Intake Visit Reasons: 4m/US(set) Intake Note: Patient is present for Ultrasound follow up Batching Operator Required: No Allergies No Known Allergies Allergy (Verified 12/04/23 13:04) Medication List - Last Reconciled 04/14/24 by Julio Cesar Vines MD ascorbic acid (vitamin C) (Vitamin C) 500 mg PO DAILY 90 days aspirin 81 mg PO DAILY atorvastatin 80 mg PO DAILY calcium 600 mg PO DAILY ezetimibe 10 mg PO DAILY hydrochlorothiazide 12.5 mg PO DAILY irbesartan 300 mg PO DAILY methenamine hippurate 1 g PO daily 90 days metoprolol tartrate 25 mg PO BID multivitamin 1 tab PO DAILY naproxen 500 mg PO BID PRN 7 days phenazopyridine (Pyridium) 100 mg PO TID PRN 5 days HPI Comments Details: Margo is a pleasant female. She is a patient of . She is seen for the following urologic conditions - pyelonephritis Four month follow-up Renal ultrasound with scarring left kidney Otherwise stable Continue with methenamine vitamin-C Pyelonephritis Hospital admission Cystoscopy with left stent placement 12/02 Here for stent removal [facility] Medical History Constipation History of recurrent UTIs Left leg DVT Rupture of left gastrocnemius muscle Leg edema, left COPD (chronic obstructive pulmonary disease) Hyperlipidemia Essential hypertension Surgical History History of left hip replacement History of operative procedure on lumbosacral spinal structure S/P IVC filter History of cataract surgery H/O: hysterectomy Social History Household Members: Spouse Housing: Apartment Housing Other:: indep living Do you presently have visiting nurse or other home services: No Alcohol intake: never Patient Tobacco Use Status: Former Tobacco user Advance Directives Date on File: 12/05/23 service: No Review of Systems Const Denies chills and Denies fever(s) Card Reports no additional complaints and Denies syncope Resp Denies cough GI Denies abdominal pain and Denies heartburn Reports as per HPI and Denies change in libido Neuro Denies syncope Psych Denies change in libido Endo Denies change in libido Physical Exam Const General: cooperative, healthy appearing, comfortable and no acute distress Orientation/consciousness: patient oriented x3 HEENT Face and sinus: Yes normal facial exam Mouth: moist mucous membranes Neck Neck: Yes normal visual inspection, Yes full ROM and Yes trachea midline Chest Chest palpation & inspection: normal inspection of the chest Resp Effort & Inspection: normal respiratory effort, able to speak in complete sentences and no respiratory distress GI Inspection: Yes normal to inspection Back/Spine/Pelvis Cervical Spine: normal cervical lordosis Thoracic/Lumbar Spine: thoracic and lumbar spine normal to inspection Skin General skin exam: no rashes or lesions noted Neuro General: patient oriented x3, gait normal, tone normal and moves all extremities Extrem General: Yes normal to inspection and Yes capillary refill normal Assessment & Plan Assessment & Plan (1) Pyelonephritis: Code(s): N12 - Tubulo-interstitial nephritis, not specified as acute or chronic Category: Medical Plan Twelve month follow-up Medications: Changed From ascorbic acid (vitamin C) (Vitamin C) 500 mg PO DAILY To ascorbic acid (vitamin C) (Vitamin C) 500 mg PO DAILY 90 days 90 tabs 3RF Refilled methenamine hippurate 1 g PO daily 90 days 90 tabs 3RF N12 - Tubulo-interstitial nephritis, not specified as acute or chronic Discontinued fesoterodine ER (Toviaz) Discontinued Reason: Patient Completed Course 4 mg PO DAILY 30 days 30 tabs 0RF cefuroxime axetil Discontinued Reason: Patient Completed Course 250 mg PO BID 7 days 14 tabs 0RF Patient Instructions: Imaging studies, laboratory and physical exam results were discussed and reviewed in detail. No major barriers to patient understanding were identified. An opportunity to ask questions regarding the treatment plan was provided. All questions were answered. The patient expressed understanding and agreement with the above treatment plan. The patient is aware they should contact our office by phone for worsening of their current condition or the appearance of new urologic symptoms. Compliance is encouraged with any medications and followup testing that is ordered. It is a privilege to participate in the urologic care of your patient. If you have any questions or concerns regarding treatment for the above conditions, or other urologic issues, please do not hesitate to contact me. The office telephone contact is [phone]. This note is constructed using voice recognition software. While every effort has been made to ensure accuracy relief man errors may have been included. Yours sincerely, Dr Julio Cesar Vines MD, [facility] - Urology Providers of Expert, Compassionate Care for the Genitourinary System Coding Level of Care Code Est Pt Level 4 (87781) Diagnoses Pyelonephritis N12
== END 2024-04-14 12:35 | disposition home or self-care (01) ==
PROVIDERS: PCP Internal Medicine; Visit Provider Urology
DX: N12 Tubulo-interstitial nephritis, not specified as acute or chronic (principal)
CPT/HCPCS: 99213

== ENCOUNTER → 2024-04-14 11:27 | Outpatient (BNVA) | payer MEDICARE, BC, SELFPAY | PROVIDERS: PCP Internal Medicine; Visit Provider Urology | DX: N12 Tubulo-interstitial nephritis, not specified as acute or chronic (principal) | CPT/HCPCS: 99212 ==

== ENCOUNTER 2024-09-02 11:21 | Outpatient (AMB) | payer MEDICARE, BC, SELFPAY ==
--- NOTE | 2024-09-02 11:24 | MHC.OFFVIS ---
Intake Visit Reasons: suppression medication discussion Intake Note: Patient is present for Medication discussion Urology Med: Methenamine, Vitamin C Antibiotic Allergy:None Blood Thinner: Aspirin Patient states medication for suppression is not working as patient has had 4 UTIs in the last 2 years and patient does not think methenamine is working as well as it should, questioning if patient should be increased in dose or if patient should get low dose prophylactic antibiotics prescribed Patient was previously treated with Antibiotic for E Coli UTI Infection Tool And Die Maker Apprentice Required: No Records Section Supervisor: Records Section Supervisor Present (Moise(son) Juanis(Daughter)) Accompanied by: Children Allergies No Known Allergies Allergy (Verified 09/02/24 11:25) HPI Comments Details: Margo is a pleasant female. She is a patient of . She is seen for the following urologic conditions - pyelonephritis Telemedicine Evaluation 15 min Consultation DoxEtalia Bijal Video attempted Discussion with children as and has progressive dementia Continue with methenamine - vitamin-C Add topical estrogen They will restart probiotic Six-month follow-up Pyelonephritis Hospital admission Cystoscopy with left stent placement 12/02 Imaging - renal US with scaring left kidney. The largest interpolar cyst measuring 51 x 56 mm and 26 x 22 mm. There is a lower pole stone at 7 x 5 mm. Culture - 12/02 E. Coli Levaquin reistant [facility] Medical History Constipation History of recurrent UTIs Left leg DVT Rupture of left gastrocnemius muscle Leg edema, left COPD (chronic obstructive pulmonary disease) Hyperlipidemia Essential hypertension Surgical History History of left hip replacement History of operative procedure on lumbosacral spinal structure S/P IVC filter History of cataract surgery H/O: hysterectomy Social History Household Members: Spouse Housing: Apartment Housing Other:: indep living Do you presently have visiting nurse or other home services: No Alcohol intake: never Patient Tobacco Use Status: Former Tobacco user Advance Directives Date on File: 12/05/23 service: No Review of Systems Const All systems reviewed & are unremarkable except as noted in HPI and below Reports no additional complaints Resp Reports no additional complaints GI Reports no additional complaints Reports as per HPI Musc Reports no additional complaints Physical Exam Telemedicine evaluation Appropriate responses Regular breathing rate and rhythm HEENT Head: Yes normal to inspection Ears: hearing grossly normal bilaterally Eyes General: appearance normal, both eyes and all related structures Neck Neck: Yes normal visual inspection Chest Chest palpation & inspection: normal inspection of the chest Resp Effort & Inspection: normal respiratory effort and able to speak in complete sentences Telehealth Telehealth Telehealth Platform: [employer] Location of provider rendering services: practice address Location of patient: address on file Patient Identification confirmed using: Name, : Yes Telehealth method: video Patient verbally consented to treatment: Yes Patient verbally consented to billing insurance company: Yes Patient informed of any privacy concerns related to visit: Yes Minutes spent on Phone/Video with Pt.: 15 Assessment & Plan Assessment & Plan (1) Recurrent UTI (urinary tract infection): Code(s): N39.0 - Urinary tract infection, site not specified Category: Medical Plan 6m f/u tele start estradiol has self start cefuroxime - will get clean catch if possible Medications: New estradiol 0.01%(0.1mg/gram) pea-sized to urethra 3 times a week 30 days 42.5 grams 2RF N39.0 - Urinary tract infection, site not specified cefuroxime axetil 250 mg PO BID 5 days 10 tabs 0RF Patient Instructions: Imaging studies, laboratory and physical exam results were discussed and reviewed in detail. No major barriers to patient understanding were identified. An opportunity to ask questions regarding the treatment plan was provided. All questions were answered. The patient expressed understanding and agreement with the above treatment plan. The patient is aware they should contact our office by phone for worsening of their current condition or the appearance of new urologic symptoms. Compliance is encouraged with any medications and followup testing that is ordered. It is a privilege to participate in the urologic care of your patient. If you have any questions or concerns regarding treatment for the above conditions, or other urologic issues, please do not hesitate to contact me. The office telephone contact is [phone]. This note is constructed using voice recognition software. While every effort has been made to ensure accuracy embroidery machine operator errors may have been included. Yours sincerely, Dr Julio Cesar Vines MD, [facility] [place] - Urology Providers of Expert, Compassionate Care for the Genitourinary System Coding Level of Care Code Tele Est Pt Level 4 (55192) Diagnoses Recurrent UTI (urinary tract infection) N39.0
== END 2024-09-02 13:51 | disposition home or self-care (01) ==
LOC: HO.HUSH 11:21
PROVIDERS: PCP Internal Medicine; Visit Provider Urology
DX: N39.0 Urinary tract infection, site not specified (principal)
CPT/HCPCS: 99214

== ENCOUNTER → 2024-09-02 11:21 | Outpatient (BNVA) | payer MEDICARE, BC, SELFPAY | PROVIDERS: PCP Internal Medicine; Visit Provider Urology ==

== ENCOUNTER 2025-03-03 13:08 | Outpatient (AMB) | payer MEDICARE, BC, SELFPAY ==
--- NOTE | 2025-03-03 13:09 | A.OFFVIS_ITS ---
Intake Visit Reasons: 6m follow up Intake Note: Patient is present for 6M F/U Urology Medication:METHENAMINE HIPPURATE,VITAMIN C,ESTRADIOL Antibiotic Allergy:NONE Blood Thinner:ASPIRIN Youth Director Required: No Allergies No Known Allergies Allergy (Verified 03/03/25 13:10) HPI Comments Details: Margo is a pleasant female. She is a patient of . She is seen for the following urologic conditions - pyelonephritis Telemedicine Evaluation 15 min Consultation Dox6Scan Bijal Video attempted Discussion with children as and has progressive dementia No UTI since last consultation Continue with methenamine - vitamin-C and vitamin C Six-month follow-up Pyelonephritis Hospital admission Cystoscopy with left stent placement 12/02 Imaging - renal US with scaring left kidney. The largest interpolar cyst measuring 51 x 56 mm and 26 x 22 mm. There is a lower pole stone at 7 x 5 mm. Culture - 12/02 E. Coli Levaquin reistant [facility] Medical History Constipation History of recurrent UTIs Left leg DVT Rupture of left gastrocnemius muscle Leg edema, left COPD (chronic obstructive pulmonary disease) Hyperlipidemia Essential hypertension Surgical History History of left hip replacement History of operative procedure on lumbosacral spinal structure S/P IVC filter History of cataract surgery H/O: hysterectomy Social History Household Members: Spouse Housing: Apartment Housing Other:: indep living Do you presently have visiting nurse or other home services: No Alcohol intake: never Patient Tobacco Use Status: Former Tobacco user Advance Directives Date on File: 12/05/23 service: No Review of Systems Const All systems reviewed & are unremarkable except as noted in HPI and below Reports no additional complaints Resp Reports no additional complaints GI Reports no additional complaints Reports as per HPI Musc Reports no additional complaints Physical Exam Telemedicine evaluation Appropriate responses Regular breathing rate and rhythm HEENT Head: Yes normal to inspection Ears: hearing grossly normal bilaterally Eyes General: appearance normal, both eyes and all related structures Neck Neck: Yes normal visual inspection Chest Chest palpation & inspection: normal inspection of the chest Resp Effort & Inspection: normal respiratory effort and able to speak in complete sentences Telehealth Telehealth Telehealth Platform: [employer] Location of provider rendering services: practice address Location of patient: address on file Patient Identification confirmed using: Name, : Yes Telehealth method: video Patient verbally consented to treatment: Yes Patient verbally consented to billing insurance company: Yes Patient informed of any privacy concerns related to visit: Yes Minutes spent on Phone/Video with Pt.: 15 Assessment & Plan Assessment & Plan (1) Recurrent UTI (urinary tract infection): Code(s): N39.0 - Urinary tract infection, site not specified Category: Medical Plan Six-month follow-up tele Medications: Discontinued phenazopyridine (Pyridium) Discontinued Reason: Patient Completed Course 100 mg PO TID 5 days PRN 15 tabs 0RF pain cefuroxime axetil Discontinued Reason: Patient Completed Course 250 mg PO BID 5 days 10 tabs 0RF Patient Instructions: This note is constructed using voice recognition software. While every effort has been made to ensure accuracy certification and selection specialist errors may have been included. Imaging studies, laboratory and physical exam results were discussed and reviewed in detail. No major barriers to patient understanding were identified. An opportunity to ask questions regarding the treatment plan was provided. All questions were answered. The patient expressed understanding and agreement with the above treatment plan. The patient is aware they should contact our office by phone for worsening of their current condition or the appearance of new urologic symptoms. Compliance is encouraged with any medications and followup testing that is ordered. It is a privilege to participate in the urologic care of your patient. If you have any questions or concerns regarding treatment for the above conditions, or other urologic issues, please do not hesitate to contact me. The office telephone contact is [phone]. Sincerely, Dr Julio Cesar Vines MD, [facility] - Urology Compassionate Specialist Care for the Genitourinary System Coding Level of Care Code Tele Est Pt Level 3 (96893) Complex EM visit Add On G2211 Diagnoses Recurrent UTI (urinary tract infection) N39.0
== END 2025-03-03 13:33 | disposition home or self-care (01) ==
LOC: HO.HUSH 13:08
PROVIDERS: PCP Internal Medicine; Visit Provider Urology
DX: N39.0 Urinary tract infection, site not specified (principal)
CPT/HCPCS: 99213; G2211

== ENCOUNTER → 2025-03-03 13:08 | Outpatient (BNVA) | payer MEDICARE, BC, SELFPAY | PROVIDERS: PCP Internal Medicine; Visit Provider Urology ==